=== PATIENT | female | born 1965 ===

== ENCOUNTER → 2021-11-03 13:50 | Outpatient (BNVA) | payer OTHER, SELFPAY | PROVIDERS: PCP Internal Medicine; Visit Provider Nurse Practitioner Family | DX: R42 Dizziness and giddiness (principal); R51.9 Headache, unspecified; R25.1 Tremor, unspecified; M54.2 Cervicalgia | CPT/HCPCS: 99212 ==

== ENCOUNTER → 2022-04-12 08:40 | Outpatient (BNVA) | payer OTHER, SELFPAY | PROVIDERS: PCP Internal Medicine; Visit Provider Nurse Practitioner Family | DX: M54.2 Cervicalgia (principal); R42 Dizziness and giddiness; R51.9 Headache, unspecified; R25.1 Tremor, unspecified; Z79.899 Other long term (current) drug therapy | CPT/HCPCS: 99212 ==

== ENCOUNTER → 2022-05-03 10:04 | Outpatient (BNVA) | payer OTHER, SELFPAY | PROVIDERS: PCP Internal Medicine; Visit Provider Nurse Practitioner Family | DX: M54.2 Cervicalgia (principal); R25.1 Tremor, unspecified; R51.9 Headache, unspecified; R20.2 Paresthesia of skin | CPT/HCPCS: 99212 ==

== ENCOUNTER 2022-06-19 09:39 | Outpatient (REF) | payer OTHER, SELFPAY ==
--- NOTE | ~2022-06-19 | MR_ITS ---
EXAMINATION: MR CERVICAL SPINE WITHOUT CONTRAST CLINICAL INFORMATION: Cervicalgia. COMPARISON: There are no prior studies available for comparison. TECHNIQUE: MRI of the cervical spine was obtained using routine sequences without contrast. FINDINGS: VERTEBRAL BODIES AND PARASPINAL SOFT TISSUES: There is nonspecific straightening of the normal cervical lordosis. There is narrowing of intervertebral disc height at C5-C6 with mild degenerative endplate contour changes with mild edematous signal. Vertebral body heights are maintained, and no fractures are demonstrated. Overall, marrow signal is homogenous. The paravertebral structures are unremarkable. CERVICOMEDULLARY JUNCTION AND VISUALIZED POSTERIOR FOSSA: The craniocervical and posterior fossa structures are normal. Accounting for artifact, spinal cord signal appears normal. SPINAL LEVELS: C2-C3: There are left-sided soft disc protrusions, more prominent laterally with some distortion of the ventral thecal sac and there may be impingement on the ventral spinal cord on the left. There is minimal effacement of CSF around the cord and there is no significant central stenosis. The neural foramina are patent bilaterally. C3-C4: There is a small right-sided soft disc protrusion with minimal distortion of the ventral thecal sac but there is no central stenosis or spinal cord compression. There is mild right foraminal narrowing. C4-C5: There is a broad-based posterior disc protrusion which is most prominent centrally and toward the right with some distortion of the thecal sac and spinal cord, and there is mild central stenosis. There are uncovertebral osteophytes and there is moderate right foraminal narrowing. C5-C6: There is a broad-based posterior soft disc protrusion which effaces CSF ventral to the cord with flattening of the cord and there is moderate central stenosis. There are uncovertebral osteophytes, and there is severe bilateral foraminal narrowing. C6-C7: There is a broad-based posterior disc protrusion with mild effacement of CSF ventral to the spinal cord. There is no cord compression or central stenosis. There are uncovertebral osteophytes and there is moderate to severe right foraminal narrowing. C7-T1: There is no spinal cord compression or central stenosis. The neural foramina are patent bilaterally. MR/MR cervical spine wo con IMPRESSION: 1. At C5-C6 there is a broad-based posterior soft disc protrusion with flattening of the cord and moderate central stenosis. There is severe bilateral foraminal narrowing. 2. At C6-C7 there is a broad-based posterior disc protrusion without cord compression or central stenosis. There is moderate to severe right foraminal narrowing. 3. At C4-C5 there is a broad-based posterior disc protrusion which is most prominent centrally and toward the right. There is mild central stenosis and there is moderate right foraminal narrowing. 4. There are left-sided disc protrusions at C2-C3 without cord compression or central stenosis. The neural foramina are patent.
== END 2022-06-19 09:40 | disposition home or self-care (01) ==
LOC: HO.MRI 09:39
PROVIDERS: Visit Provider Nurse Practitioner Family
DX: M54.2 Cervicalgia (principal); R20.2 Paresthesia of skin; R25.1 Tremor, unspecified
CPT/HCPCS: 72141

== ENCOUNTER 2022-07-18 14:05 | Outpatient (REF) | payer OTHER, SELFPAY ==
--- NOTE | 2022-07-18 09:15 | EMG_ITS ---
Please see scanned EMG / Nerve Conduction Report. MTDD
== END 2022-07-18 14:06 | disposition home or self-care (01) ==
LOC: HO.NEURO 14:05
PROVIDERS: Visit Provider Nurse Practitioner Family
DX: M54.2 Cervicalgia (principal); R25.1 Tremor, unspecified
CPT/HCPCS: 95885; 95913

== ENCOUNTER → 2022-07-26 08:50 | Outpatient (BNVA) | payer OTHER, SELFPAY | PROVIDERS: PCP Internal Medicine; Visit Provider Nurse Practitioner Family | DX: M54.2 Cervicalgia (principal); R51.9 Headache, unspecified; R25.1 Tremor, unspecified; R42 Dizziness and giddiness; R20.2 Paresthesia of skin; M48.02 Spinal stenosis, cervical region | CPT/HCPCS: 99212 ==

== ENCOUNTER → 2022-11-19 09:10 | Outpatient (BNVA) | payer OTHER, SELFPAY | PROVIDERS: PCP Internal Medicine; Visit Provider Nurse Practitioner Family | DX: G47.9 Sleep disorder, unspecified (principal); R51.9 Headache, unspecified; R41.3 Other amnesia; R06.83 Snoring | CPT/HCPCS: 99212 ==

== ENCOUNTER 2023-05-30 07:36 | Outpatient (AMB) | payer OTHER, SELFPAY ==
--- NOTE | 2023-05-30 07:45 | A.OFFVIS_ITS ---
Intake Vital Signs 05/30/23 08:00 Height 5 ft Weight 143 lb BMI 27.9 BP 96/74 Blood Pressure Location Rt brachial Position Sitting Pulse 73 Pulse Source Pulse Oximeter Pulse Oximetry (%) 100 Oxygen Delivery Method Room Air Intake Visit Reasons: 6m follow up headache-Confirmed Intake Note: Patient presents for 6 month follow headache.Patient states still the same no changes, Last time she saw me she was going to order in lab sleep apnea also a referral to go to [facility] to do a test that takes 5 hours. . Allergies No Known Allergies Allergy (Verified 05/30/23 08:02) Medication List - Last Reconciled 05/30/23 by NISHI Almonte diclofenac sodium 1% grams topical magnesium oxide 400 mg PO BEDTIME 30 days pantoprazole 40 mg PO DAILY HPI HPI Comments History of Present Illness Details 57-yr-old female presents for f/u visit. Pt denies any significant interval medical changes. Pt states that her headaches are stable on Magnesium. She continues to have sleep difficulties, fragmented sleep, snoring, daytime sleepiness. She is still concerned about her memory- she wakes up not always knowing what day it is, has difficulty retaining information. [facility] Surgical History Hx of abdominoplasty S/P removal of thyroid nodule Hx of bariatric surgery Family History Mother No problems noted. Father No problems noted. Social History Household Members: None Alcohol intake: current Alcohol intake frequency: does not drink Patient Tobacco Use Status: Former Tobacco user Quit Date: 2018 Current occupational status: disabled Review of Systems Const All systems reviewed & are unremarkable except as noted in HPI and below Physical Exam Vital Signs: Last Vital Signs Pulse 73 05/30/23 08:00 BP 96/74 05/30/23 08:00 Pulse Ox 100 05/30/23 08:00 Oxygen Delivery Method Room Air 05/30/23 08:00 BMI result Body Mass Index 27.9 Const General: cooperative and no acute distress Orientation/consciousness: patient oriented x3 HEENT Head: Yes normocephalic Resp Effort & Inspection: normal respiratory effort and able to speak in complete sentences Neuro General: patient oriented x3, gait normal and CN's II-XI intact bilaterally Cognition (Neuro): normal cognition Motor exam (neuro): 5/5 motor strength present throughout Psych Appearance: grossly normal Mental Status: mental status grossly normal Speech and movement: Normal speech and movement present Affect: normal affect Attitude: cooperative Thought process: Normal thought process present Thought content: Normal thought content present Insight: Good insight present (Psych) Judgement: Good judgement present (Psych) Orientation What is the (year) (season) (date) (day) (month)?: year, season, date, day and month Where are we (state) (county) (town or city) (hospital) (floor)?: state, county, town or city, hospital/clinic and floor Registration Name of 3 unrelated objects clearly and slowly, then ask patient to repeat all 3 of them. (1st repeat determines score. Make sure they can repeat all three): object 1, object 2 and object 3 Attention & Calculation (CHOOSE ONE) Spell WORLD backwards (DLROW): 5 letters Recall Ask patient to repeat the 3 items from question #3.: object 1 and object 2 Language Show patient a wristwatch & ask what it is. Repeat for pencil.: watch and pencil Ask the patient to 'take a piece of paper with their right hand' 'fold paper in half' 'place paper on floor': fold paper in half and place paper on floor Print the sentence 'CLOSE YOUR EYES' on a piece. If patient actually closes eyes then score.: followed written direction Give patient a blank piece of paper & ask to write a sentence. Score if it contains a noun & verb.: sentence contains subject and verb Score Score: 26 Assessment & Plan Assessment & Plan (1) Sleep difficulties: Code(s): G47.9 - Sleep disorder, unspecified (2) Snoring: Code(s): R06.83 - Snoring (3) Excessive daytime sleepiness: Comment: ESS 12 Code(s): G47.19 - Other hypersomnia (4) Memory difficulties: Code(s): R41.3 - Other amnesia (5) Headache: Code(s): R51.9 - Headache, unspecified Plan For headache: Continue Magnesium 400mg qhs. ? For memory: Note on MMSE- score of 26 should be recorded as 26/29, as the repeat phrase was omitted as this phrase does not translate well into Mongolian. Baseline neuro-psych eval as ordered. ? For sleep difficulties: Pt advised to undergo HST to assess for sleep apnea. Orders: Orders RT PSG in-lab sleep study 05/30/23 G47.19 - Other hypersomnia, G47.9 - Sleep disorder, unspecified, R06.83 - Snoring Coding Level of Care Code Est Pt Level 4 (48429) Diagnoses Sleep difficulties G47.9 Snoring R06.83 Excessive daytime sleepiness G47.19 Memory difficulties R41.3 Headache R51.9
[2023-05-30 08:00] VITALS: BP 96/74; PULSE 73; O2SAT 100; BMI 27.9
== END 2023-05-30 08:42 | disposition home or self-care (01) ==
PROVIDERS: Visit Provider Nurse Practitioner Family
DX: G47.9 Sleep disorder, unspecified (principal); R06.83 Snoring; G47.19 Other hypersomnia; R41.3 Other amnesia; R51.9 Headache, unspecified
CPT/HCPCS: 99214

== ENCOUNTER → 2023-05-30 07:36 | Outpatient (BNVA) | payer OTHER, SELFPAY | PROVIDERS: Visit Provider Nurse Practitioner Family | DX: R51.9 Headache, unspecified (principal); R41.3 Other amnesia; G47.9 Sleep disorder, unspecified; G47.19 Other hypersomnia; R06.83 Snoring | CPT/HCPCS: 99212 ==

== ENCOUNTER → 2023-06-17 20:30 | Outpatient (REF) | payer OTHER, SELFPAY | LOC: HO.SL 20:30 | PROVIDERS: PCP Internal Medicine; Visit Provider Nurse Practitioner Family | DX: G47.19 Other hypersomnia (principal); G47.9 Sleep disorder, unspecified; R06.83 Snoring | CPT/HCPCS: 95810 ==

== ENCOUNTER → 2023-06-17 20:30 | Outpatient (BNV) | payer OTHER, SELFPAY | PROVIDERS: PCP Internal Medicine; Visit Provider Psychiatry & Neurology Neurology | DX: R06.83 Snoring (principal) | CPT/HCPCS: 95810 ==

== ENCOUNTER 2023-09-26 09:16 | Outpatient (AMB) | payer OTHER, SELFPAY ==
--- NOTE | 2023-09-26 09:22 | MHC.OFFVIS ---
Intake Vital Signs 09/26/23 09:27 Height 5 ft Weight 142 lb BMI 27.7 BP 124/72 Blood Pressure Location Rt brachial Position Sitting Pulse 61 Pulse Source Pulse Oximeter Pulse Oximetry (%) 99 Oxygen Delivery Method Room Air Intake Visit Reasons: 4 mnts f/u appt-LVM Intake Note: Patient presents for month follow up. I have two concerns, I had a mild headache back in July and my whole arm got very numb and then this month I went to [facility] and after going in a was very confused on why I was there. Allergies No Known Allergies Allergy (Verified 09/26/23 09:30) Medication List - Last Reconciled 09/26/23 by NISHI Almonte cyclobenzaprine 5 - 10 mg (1 - 2 x 5 mg) PO BEDTIME PRN 30 days diclofenac sodium 1% grams topical magnesium oxide 400 mg PO BEDTIME 30 days pantoprazole 40 mg PO DAILY HPI HPI Comments History of Present Illness Details 57-yr-old female presents for f/u visit. Pt did have Covid-19 infection in Jul, had more symptoms and strong fever, but is now feeling better. Her in-lab PSG was normal w/ AHI 0/hr and O2 martha 93%. She continues to have memory issues. She may forget where she put something, for instance took a card out to move it, but forgot where she put it. She had an episode where she walked into [facility] and became confused where she was and could not figure out how to leave the store. She does try to keep lists. She is on waiting list for neuro-psych eval. She continues to have some headaches. She had an episode of increased LUE pain, numbness, heaviness, and hand swelling x's 30 minutes and then the s/s resolved. She had some headache and nausea. She can have LUE tingling, numbness when she holds her phone in her hands for awhile. Her neck can be tense. She has been doing PT- was for her hips and now for her low back. F/B PS&S. PFSH Surgical History Hx of abdominoplasty S/P removal of thyroid nodule Hx of bariatric surgery Family History Mother No problems noted. Father No problems noted. Social History Household Members: None Alcohol intake: current Alcohol intake frequency: does not drink Patient Tobacco Use Status: Former Tobacco user Quit Date: 2018 Current occupational status: disabled Physical Exam Vital Signs: Last Vital Signs Pulse 61 09/26/23 09:27 BP 124/72 09/26/23 09:27 Pulse Ox 99 09/26/23 09:27 Oxygen Delivery Method Room Air 09/26/23 09:27 BMI result Body Mass Index 27.7 Const General: cooperative and no acute distress Orientation/consciousness: patient oriented x3 Resp Effort & Inspection: normal respiratory effort and able to speak in complete sentences Neuro Other: Bilateral posterior cervical tightness. Negative bilateral Tinel, Phalen, medial compression test. General: patient oriented x3 Cranial nerves: Yes CN's II-XII intact bilaterally Cognition (Neuro): normal cognition Psych Appearance: grossly normal Mental Status: mental status grossly normal Speech and movement: Normal speech and movement present Affect: normal affect Attitude: cooperative Assessment & Plan Assessment & Plan (1) Memory difficulties: Code(s): R41.3 - Other amnesia (2) Headache: Code(s): R51.9 - Headache, unspecified (3) Tremor: Code(s): R25.1 - Tremor, unspecified (4) Cervicalgia: Code(s): M54.2 - Cervicalgia Plan For headache, cervicalgia, paresthesia: Continue Magnesium 400mg qhs. Trila cyclobenzaprine5-10mg qhs prn. 2021 [facility]UE EMG/NCS- normal Future considerations: PT, repeat EMG/NCS, c-spine imaging. ? For memory: Baseline neuro-psych eval as ordered. Will request recent lab work by PCP. Pt advised to undergo EEG. ? For sleep difficulties: Reviewed HST and in-lab PSG- normal. Jun 2023- In-lab PSG- AHI 0/hr and O2 martha 93%. Medications: New cyclobenzaprine 5 - 10 mg (1 - 2 x 5 mg) PO BEDTIME PRN 60 tabs 3RF muscle spasm 30 days Coding Level of Care Code Est Pt Level 4 (84266) Diagnoses Memory difficulties R41.3 Headache R51.9 Tremor R25.1 Cervicalgia M54.2
[2023-09-26 09:27] VITALS: BP 124/72; PULSE 61; O2SAT 99; BMI 27.7
== END 2023-09-26 10:33 | disposition home or self-care (01) ==
PROVIDERS: PCP Internal Medicine; Visit Provider Nurse Practitioner Family
DX: R41.3 Other amnesia (principal); R51.9 Headache, unspecified; R25.1 Tremor, unspecified; M54.2 Cervicalgia
CPT/HCPCS: 99214

== ENCOUNTER → 2023-09-26 09:16 | Outpatient (BNVA) | payer OTHER, SELFPAY | PROVIDERS: PCP Internal Medicine; Visit Provider Nurse Practitioner Family | DX: R41.3 Other amnesia (principal); R51.9 Headache, unspecified; R25.1 Tremor, unspecified; M54.2 Cervicalgia | CPT/HCPCS: 99212 ==

== ENCOUNTER 2023-10-16 12:33 | Outpatient (REF) | payer OTHER, SELFPAY ==
--- NOTE | 2023-10-16 12:37 | EEG_ITS ---
FINDINGS: The waking background activity consists of low voltage fast frequencies seen diffusely intermixed with muscle artifacts anteriorly. Occasional posterior low voltage 11 hertz alpha frequency was seen briefly. Photic stimulation produces symmetrical photic driving responses in the posterior quadrants. Hyperventilation was omitted. No focal, lateralizing, or paroxysmal discharges are seen. IMPRESSION: This waking EEG is considered within normal limits. MD CLINTON Pastrana/ADRIAN / [phone]
== END 2023-10-16 12:34 | disposition home or self-care (01) ==
LOC: HO.NEURO 12:33
PROVIDERS: PCP Internal Medicine; Visit Provider Nurse Practitioner Family
DX: R41.3 Other amnesia (principal); R42 Dizziness and giddiness; R51.9 Headache, unspecified; R25.1 Tremor, unspecified
CPT/HCPCS: 95816

== ENCOUNTER 2024-01-29 08:45 | Outpatient (AMB) | payer OTHER, SELFPAY ==
--- NOTE | 2024-01-29 08:50 | MHC.OFFVIS ---
Vital Signs 01/29/24 09:22 Height 5 ft Weight 146 lb BMI 28.5 BP 110/78 Blood Pressure Location Rt brachial Position Sitting Pulse 62 Pulse Source Pulse Oximeter Pulse Oximetry (%) 98 Oxygen Delivery Method Room Air Intake Visit Reasons: 4 Month F/U-LVM Intake Note: Patient presents for 4 month follow up.Patient is feeling dizziness and gets nauseaous. Geoscience Specialist Required: Yes Geoscience Specialist Name: gopal weaver Allergies No Known Allergies Allergy (Verified 01/29/24 09:21) Medication List - Last Reconciled 01/29/24 by NISHI Almonte cyclobenzaprine 5 - 10 mg (1 - 2 x 5 mg) PO BEDTIME PRN 30 days diclofenac sodium 1% grams topical magnesium oxide 400 mg PO BEDTIME 30 days pantoprazole 40 mg PO DAILY HPI Comments Details: 58-yr-old female presents for f/u visit. Pt denies any significant interval medical changes. She has been feeling good overall. However she is noticing episodes of dizziness, nausea, buzzing in her head. The dizziness is like off-balance or not right in space. 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 She notices this is better when she wears her glasses- has prescription glasses- has some catracts and glaucoma. She sometimes sees water falling in he left or right lateral vision- was felt to be r/t glaucoma or dry eyes. She has good and bad days with her neck pain. She has tightness and discomfort in the Right shoulder. She has been doing PT at [facility]. She has been having soem dry needling. The cyclobenzaprine did seem to make her dizziness. [facility] Surgical History Hx of abdominoplasty S/P removal of thyroid nodule Hx of bariatric surgery Family History Mother No problems noted. Father No problems noted. Social History Household Members: None Alcohol intake: current Alcohol intake frequency: does not drink Patient Tobacco Use Status: Former Tobacco user Current occupational status: disabled Physical Exam Vital Signs: Last Vital Signs Pulse 62 01/29/24 09:22 BP 110/78 01/29/24 09:22 Pulse Ox 98 01/29/24 09:22 Oxygen Delivery Method Room Air 01/29/24 09:22 BMI result Body Mass Index 28.5 Const General: cooperative and no acute distress Orientation/consciousness: patient oriented x3 Resp Effort & Inspection: normal respiratory effort and able to speak in complete sentences Neuro Other: Bilateral posterior cervical tightness. EOM intact, but elicits uneasy feeling. General: patient oriented x3 Cranial nerves: Yes CN's II-XII intact bilaterally Cognition (Neuro): normal cognition Coordination: [id number] test normal and tandem gait normal Romberg Test: Negative Psych Appearance: grossly normal Mental Status: mental status grossly normal Speech and movement: Normal speech and movement present Affect: normal affect Attitude: cooperative Assessment & Plan Assessment & Plan (1) Dizziness: Code(s): R42 - Dizziness and giddiness Category: Medical (2) Cervical stenosis of spinal canal: Code(s): M48.02 - Spinal stenosis, cervical region Category: Medical (3) Neural foraminal stenosis of cervical spine: Comment: multilevel, bilateral Code(s): M48.02 - Spinal stenosis, cervical region Category: Medical (4) Paresthesia of right upper extremity: Code(s): R20.2 - Paresthesia of skin Category: Medical (5) Headache: Code(s): R51.9 - Headache, unspecified Category: Medical (6) Memory difficulties: Code(s): R41.3 - Other amnesia Category: Medical Plan For headache, cervicalgia, paresthesia, dizziness: Pt does not want to try new med tx until she has completed PT. Continue Magnesium 400mg qhs. Stop cyclobenzaprine 5-10mg qhs prn- not tolerated. 2021 [facility] EMG/NCS- normal Continue PT. Try to avoid sustained cervical flexion- strategies discussed, such a table to raise book while reading. Also- use lubricating eye drops and eye glasses. Ensure adequeate hydration. Future considerations: repeat EMG/NCS, c-spine imaging. ? For memory: Baseline neuro-psych eval as ordered. Reviewed EEG- normal. HST and in-lab PSG- normal. Jun 2023- In-lab PSG- AHI 0/hr and O2 martha 93%. Medications: Discontinued cyclobenzaprine Discontinued Reason: Doctor's Order 5 - 10 mg (1 - 2 x 5 mg) PO BEDTIME 30 days PRN 60 tabs 3RF muscle spasm Coding Level of Care Code Est Pt Level 4 (93427) Diagnoses Dizziness R42 Cervical stenosis of spinal canal M48.02 Neural foraminal stenosis of cervical spine M48.02 Paresthesia of right upper extremity R20.2 Headache R51.9 Memory difficulties R41.3
[2024-01-29 09:22] VITALS: BP 110/78; PULSE 62; O2SAT 98; BMI 28.5
== END 2024-01-29 09:59 | disposition home or self-care (01) ==
PROVIDERS: PCP Internal Medicine; Visit Provider Nurse Practitioner Family
DX: R42 Dizziness and giddiness (principal); M48.02 Spinal stenosis, cervical region; R20.2 Paresthesia of skin; R51.9 Headache, unspecified; R41.3 Other amnesia
CPT/HCPCS: 99214

== ENCOUNTER → 2024-01-29 08:45 | Outpatient (BNVA) | payer OTHER, SELFPAY | PROVIDERS: PCP Internal Medicine; Visit Provider Nurse Practitioner Family | DX: M48.02 Spinal stenosis, cervical region (principal); R42 Dizziness and giddiness; R20.2 Paresthesia of skin; R51.9 Headache, unspecified; R41.3 Other amnesia | CPT/HCPCS: 99212 ==

== ENCOUNTER 2024-05-01 14:35 | Outpatient (AMB) | payer OTHER, SELFPAY ==
--- NOTE | 2024-05-01 15:06 | MHC.OFFVIS ---
Vital Signs 05/01/24 15:07 Height 5 ft Weight 145 lb 2 oz BMI 28.3 BP 110/80 Blood Pressure Location Lt brachial Position Sitting Pulse 72 Pulse Source Pulse Oximeter Pulse Oximetry (%) 98 Oxygen Delivery Method Room Air Intake Visit Reasons: 6 Month F/U Defensive Secondary Coach Required: Yes Defensive Secondary Coach Services: Defensive Secondary Coach Present (Lakia Clarkejuarez/ [facility] Defensive Secondary Coach) Defensive Secondary Coach Name: Lakia Bojorquez with [facility] Accompanied by: Other Relationship Allergies No Known Allergies Allergy (Verified 05/01/24 15:11) Medication List - Last Reconciled 05/01/24 by NISHI Almonte diclofenac sodium 1% grams topical magnesium oxide 400 mg PO BEDTIME 30 days pantoprazole 40 mg PO DAILY HPI Comments Details: 58-yr-old female presents for f/u visit. Pt is accompanied by certified court/medical interpreter, Pt recently underwent right thumb orthopedic repair w/o complication. She is still in soft splint and splint. She states she did have bothersome dizziness, right ear tinnitus, right mastoid region pressure sensation- more so in Mar. However, pt states in the last week, she has felt magnificent . Barely has any dizziness when she moves. She would like to discuss alternate tx options in case the dizziness returns, as when the dizziness is wore it makes it difficult to do her daily activities. She did have neuro-psych consult- states she was told she has normal age-related cognitive s/s. [facility] Surgical History Hx of abdominoplasty S/P removal of thyroid nodule Hx of bariatric surgery Family History Mother No problems noted. Father No problems noted. Social History Household Members: None Alcohol intake: current Alcohol intake frequency: does not drink Patient Tobacco Use Status: Former Tobacco user Current occupational status: disabled Physical Exam Vital Signs: Last Vital Signs Pulse 72 05/01/24 15:07 BP 110/80 05/01/24 15:07 Pulse Ox 98 05/01/24 15:07 Oxygen Delivery Method Room Air 05/01/24 15:07 BMI result Body Mass Index 28.3 Const General: cooperative and no acute distress Orientation/consciousness: patient oriented x3 Resp Effort & Inspection: normal respiratory effort and able to speak in complete sentences Neuro General: patient oriented x3 Cranial nerves: Yes CN's II-XII intact bilaterally Cognition (Neuro): normal cognition Extrem Other: Right arm soft cast intact Psych Appearance: grossly normal Mental Status: mental status grossly normal Speech and movement: Normal speech and movement present Affect: normal affect Attitude: cooperative Assessment & Plan Assessment & Plan (1) Dizziness: Code(s): R42 - Dizziness and giddiness Category: Medical (2) Headache: Code(s): R51.9 - Headache, unspecified Category: Medical (3) Cervicalgia: Code(s): M54.2 - Cervicalgia Category: Medical Plan For headache, cervicalgia, paresthesia, dizziness: Continue Riboflavin 400mg qam. Continue Magnesium 400mg qhs. Trial Gabapentin 100-300mg qd- may take for periods of dizziness and headache. Try to avoid sustained cervical flexion- strategies discussed, such a table to raise book while reading. Use lubricating eye drops and eye glasses. Ensure adequate hydration. Previous trials: Cyclobenzaprine 5-10mg qhs prn- not tolerated. Future considerations: repeat EMG/NCS, c-spine imaging. ? For memory: Neuro-psych eval reassuring. EEG- normal. HST and in-lab PSG- normal. Jun 2023- In-lab PSG- AHI 0/hr and O2 martha 93%. Continue regular social, cognitive stimulating activities. Medications: New gabapentin for episodes of dizziness, tinnitus, headache 100 - 300 mg (1 - 3 x 100 mg) PO BEDTIME 30 days 90 caps 3RF Coding Level of Care Code Est Pt Level 4 (84097) Diagnoses Dizziness R42 Headache R51.9 Cervicalgia M54.2
[2024-05-01 15:07] VITALS: BP 110/80; PULSE 72; O2SAT 98; BMI 28.3
== END 2024-05-01 15:36 | disposition home or self-care (01) ==
PROVIDERS: PCP Internal Medicine; Visit Provider Nurse Practitioner Family
DX: R42 Dizziness and giddiness (principal); R51.9 Headache, unspecified; M54.2 Cervicalgia
CPT/HCPCS: 99214

== ENCOUNTER → 2024-05-01 14:35 | Outpatient (BNVA) | payer OTHER, SELFPAY | PROVIDERS: PCP Internal Medicine; Visit Provider Nurse Practitioner Family | DX: R42 Dizziness and giddiness (principal); R51.9 Headache, unspecified; M54.2 Cervicalgia | CPT/HCPCS: 99212 ==

== ENCOUNTER 2024-10-28 09:06 | Outpatient (REF) | payer OTHER, SELFPAY ==
--- NOTE | ~2024-10-28 | MR_ITS ---
EXAMINATION: MR BRAIN/IAC PROTOCOL WITHOUT AND WITH CONTRAST CLINICAL INFORMATION: Vertigo. Tinnitus right ear. COMPARISON: None available. TECHNIQUE: Multiplanar, multisequence MRI of the brain IAC protocol was obtained before and after the intravenous administration of 6.5 mL (Gadavist). No reported immediate complications. FINDINGS: The cochlear and vestibular components of the 8th cranial nerve demonstrated no signal abnormality or enhancing lesion. There is a right anterior inferior cerebral artery type III. There is a left anterior inferior cerebral artery type II. No restricted diffusion. No acute intracranial hemorrhage, mass effect, midline shift, hydrocephalus or herniation. Navarro-white matter differentiation is normal. Sellar/suprasellar region is normal. Craniocervical junction is intact and normal. No acute intracranial hemorrhage, mass effect, midline shift, hydrocephalus or herniation. There are a few, less than 3 mm nonenhancing no restricted diffusion punctate subcortical and deep white matter hyperintense T2 FLAIR signal in the right frontal and right temporal parietal lobes. Flow-void signal within the main cerebral vessels is normal. No masses or signal abnormality within the intraconal or the extraconal compartments of the orbits. MR/MR head/brain wo/w con IMPRESSION: No vestibular schwannoma. Right AICA type III. Left AICA, type II. Nonspecific T2 FLAIR signal foci, right frontal temporoparietal lobes. No acute brain abnormality. Electronically signed by: Ben Ji MD 10/28/2024 04:05 PM EDT
--- OUTSIDE RECORDS SUMMARY | 2024-10-28 09:55 | XMS_ITS | Encounter Summary ---
Author Organization [facility] Address [address] [place] [address] Care Team Providers Care Coal Equipment Operator Name Role Phone Catrachito Tran MD Primary Care Provider [phone] Reason for Referral * Consultation (Routine) - Authorized Specialty Diagnoses / Procedures Referred By Contedmund t Referred To Contact Plastic Surgery Diagnoses Excess skin of thigh Dayo Green MD [address] [address] Phone: tel: fax: Jessi Rose MD [address] [place] [id number] Phone: tel: fax: Referral ID Status Reason Start Date Expiration Date Visits Requested Visits Authorized [id number] Authorized Specialty Services Required 10/15/2024 10/15/2025 1 1 Reason for Visit * Reason Comments Follow-up 1 year follow up Encounter Details Date Type Department Care Team (Latest Contact Info) Description 10/15/2024 1:30 PM EST Office Visit Bariatric Surgery - [place] [address] [phone] Dayo Green MD [address] [address] Postgastrectomy malabsorption (Primary Dx); Over weight; Excess skin of thigh Social History Tobacco Use Types Packs/Day Years Used Date Smoking Tobacco: Former Cigarettes 0.5 35.9 0 10/10/1981 - 09/14/2017 Smokeless Tobacco: Never Alcohol Use Standard Drinks/Week Comments No 0 (1 standard drink = 0.6 oz pur e alcohol) Comments No Sex and Gender Information Value Date Recorded Sex Assigned at Not on file Legal Sex Female 2:59 AM EST Gender Identity Not on file Sexual Orientation Not on file documented as of this encounter Last Filed Vital Signs Vital Sign Reading Time Taken Comments Blood Pressure 122/74 10/15/2024 1:43 PM EST Pulse 69 10/15/2024 1:43 PM EST Temperature 36.9 ??C (98.4 ??F) 10/15/2024 1:43 PM ES T Respiratory Rate - - Oxygen Saturation - - Inhaled Oxygen Concentration - - Weight 66.7 kg (147 lb) 10/15/2024 1:43 PM EST Height 152.4 cm (5') 10/15/2024 1:43 PM EST Body Mass Index 28.71 10/15/2024 1:43 PM EST documented in this encounter Progress Notes * Dayo Green MD - 10/15/2024 1:30 PM EST Ms. Najera is a 59 y.o. year old female who presents for surgical follow up regarding obesity. HPI: Ms. Najera had sleeve 02/2020. Has regained 7 lbs, anxiety eating at night. Excess skin of thighs. Having pain in the lower back , hips and knees. BMI is 28.71. Labs reviewed. ROS: GENERAL: No malaise, significant unintentional weight loss, fever, chills or night sweats. HEENT: No changes in hearing or vision, no nose bleeds or other nasal problems. NECK: No lumps, goiter, pain or significant neck swelling RESPIRATORY: No cough, wheezing or shortness of breath CARDIOVASCULAR: No chest pain, leg swelling or palpitations. GI: No abdominal discomfort, nausea, vomiting, or change in bowel habits. : No dysuria, frequency or incontinence. SKIN: No lesions, rash or itching. HEMATOLOGY: No prolonged bleeding, easy bruisability. LYMPHOLOGY No swollen nodes. MUSCULOSKELETAL: back pain, knee pain, hip pain. Excess skin thighs. NEURO: No abnormalities. All other systems reviewed which are negative. PAST MEDICAL HISTORY: Patient Active Problem List Diagnosis Date Noted Date Diagnosed Primary osteoarthritis of first carpometacarpal joint of right hand 12/30/2023 Rupture of radial collateral ligament of thumb, right, sequela 12/30/2023 Primary osteoarthritis of left knee 09/05/2023 Primary osteoarthritis of right knee 09/05/2023 COVID 07/15/2023 Diastasis recti 06/05/2022 Intertrigo 06/05/2022 Pannus, abdominal 06/05/2022 Overweight (BMI 25.0-29.9) 05/05/2020 Prediabetes 12/09/2019 Vitamin D deficiency 12/31/2018 ARMD (age related macular degeneration) 05/05/2018 Cortical cataract of both eyes 05/05/2018 Retinal drusen of both eyes 05/05/2018 Multinodular goiter 12/12/2017 Osteoarthritis 08/20/2017 Glaucoma suspect of both eyes 04/29/2017 Obstructive sleep apnea 10/29/2014 RLS (restless legs syndrome) 10/29/2014 Major depression 05/06/2014 GERD (gastroesophageal reflux disease) 05/15/2010 PAST SURGICAL HISTORY: Past Surgical History: Procedure Laterality Date BARIATRIC SURGERY 02/2020 PROCEDURE: GA LAPS GSTRC RSTRICTIV PX LONGITUDINAL GASTRECTOMY SECTION PROCEDURE: HISTORICAL COLONOSCOPY 07/04/2010 PROCEDURE: HISTORICAL COLONOSCOPY; COMMENT: Up to cecum, good preparation, 2 sigmoid polyp removed:TA/hyperplastic, rectal polyp removed:hyperplastic COLONOSCOPY 11/08/2015 PROCEDURE: HISTORICAL COLONOSCOPY; COMMENT: No polyps FINE NEEDLE ASPIRATION 12/06/2017 PROCEDURE: FINE NDLE ASPRTN W/IMAGING GUIDANCE; COMMENT: Thyroid- benign FOOT SURGERY Left 1999 PROCEDURE: HISTORICAL FOOT SURGERY; COMMENT: Bunionectomy TUBAL LIGATION PROCEDURE: HISTORICAL TUBAL LIGATION UPPER GASTROINTESTINAL ENDOSCOPY 11/08/2010 PROCEDURE: GA UPPER GI ENDOSCOPY PERFORMED; COMMENT: normal UPPER GASTROINTESTINAL ENDOSCOPY 07/05/2004 PROCEDURE: GA UPPER GI ENDOSCOPY PERFORMED; COMMENT: [facility] - HH; antral gastritis; - H. pylori WRIST SURGERY Left 02/2020 PROCEDURE: HISTORICAL WRIST SURGERY; COMMENT: ORIF, navicular fracture SOCIAL HISTORY: Social History Tobacco Use Smoking status: Former Current packs/day: 0.00 Average packs/day: 0.5 packs/day for 35.9 years (18.0 ttl pk-yrs) Types: Cigarettes Start date: 10/10/1981 Quit date: 09/14/2017 Years since quittin.0 Smokeless tobacco: Never Substance Use Topics Alcohol use: No FAMILY HISTORY: Family History Problem Relation Name Age of Onset Arthritis Mother No Known Problems Father Arthritis Sister No Known Problems Brother No Known Problems Maternal Grandmother No Known Problems Maternal Grandfather No Known Problems Paternal Grandmother No Known Problems Paternal Grandfather No Known Problems Aunt No Known Problems Uncle No Known Problems Other Blindness Neg Hx Cataracts Neg Hx Glaucoma Neg Hx Macular degeneration Neg Hx Strabismus Neg Hx Breast cancer Neg Hx Ovarian cancer Neg Hx Colon cancer Neg Hx Uterine cancer Neg Hx Pancreatic cancer Neg Hx Kidney cancer Neg Hx Family Status Relation Name Status Mother Alive Father Sister Alive Brother Alive MGM (Not Specified) MGF (Not Specified) PGM (Not Specified) PGF (Not Specified) Aunt (Not Specified) Uncle (Not Specified) Other (Not Specified) Neg Hx (Not Specified) No partnership data on file MEDICATIONS: There are no discontinued medications. ACTIVE MEDICATIONS: No outpatient medications have been marked as taking for the 10/15/24 encounter (Office Visit) with Dayo Green MD. ALLERGIES: No Known Allergies PHYSICAL EXAM: Visit Vitals BP 122/74 Pulse 69 Temp 36.9 ??C (98.4 ??F) (Temporal) Ht 1.524 m (60 ) Wt 66.7 kg (147 lb) BMI 28.71 kg/m?? OB Status Postmenopausal Smoking Status Former BSA 1.64 m?? APPEARANCE: Alert and oriented and in no acute distress EYES: Conjunctiva normal and sclera normal and anicteric. NECK: Neck supple with no adenopathy. HEART: RRR with normal S 1 and S 2, no murmurs, no gallops. LUNG: Clear to auscultation LYMPH NODES: No gross cervical or clavicular lymphadenopathy. ABDOMEN: Bowel sounds normoactive, soft, non-tender, non-distended, EXTREMITIES: Extremities warm and well perfused without clubbing, cyanosis, or edema. SKIN: Skin color and texture normal. No rashes or lesions. NEUROLOGIC: Alert and oriented ??3. No motor or sensory deficits in the extremities. LABS/IMAGING: ASSESSMENT: 1. Postgastrectomy malabsorption 2. Over weight 3. Excess skin of thigh PLAN: 1. Will check labs to R/O deficiencies and for obesity complications. 2. Refer to plastic surgeon for excess skin of the thighs causing pain. Dietitian for weight regain. 3. F/U in 4 months. documented in this encounter Plan of Treatment Upcoming Encounters Date Type Department Care Team (Late st Contact Info) Description 12/01/2024 9:30 AM EDT Nutrition Bariatric Surgery - [place] [address] [phone] Phyllis Abrams, RD [address] [phone] 12/16/2024 9:30 AM EDT Office Visit Orthopedic Surgery [facility] 160 175 [facility] [address] [place] [phone] Bushra Zambrano PA [address] [address] 12/18/2024 9:30 AM EDT [facility]ointment [facility] [address] [place] [phone] 02/03/2025 9:30 AM EDT Office Visit Orthopedic Surgery [facility] 250 175 [facility] [address] [place] [phone] Romy Hein NP [address] [address] 02/16/2025 8:15 AM EDT Office Visit Bariatric Surgery [facility] [address] [phone] Dayo Green MD [address] [address] Scheduled Orders Name Type Priority Associated Diagnoses Orde r Schedule Lipid panel with reflex to direct LDL Lab Routine Postgastrectomy malabsorption 1 Occurrences starting 10/15/2024 until 10/15/2025 Albumin Lab Routine Postgastrectomy malabsorption 1 Occurrences starting 10/15/2024 until 10/15/2025 Folate Lab Routine Postgastrectomy malabsorption 1 Occurrences starting 10/15/2024 until 10/15/2025 Iron and TIBC Lab Routine Postgastrectomy malabsorption 1 Occurrences starting 10/15/2024 until 10/15/2025 Vitamin B12 Lab Routine Postgastrectomy malabsorption 1 Occurrences starting 10/15/2024 until 10/15/2025 Vitamin D 25 hydroxy Lab Routine Postgastrectomy malabsorption 1 Occurrences starting 10/15/2024 until 10/15/2025 Zinc Lab Routine Postgastrectomy malabsorption 1 Occurrences starting 10/15/2024 until 10/15/2025 Hemoglobin A1c Lab Routine Postgastrectomy malabsorption 1 Occurrences starting 10/15/2024 until 10/15/2025 Thyroid stimulating hormone Lab Routine Postgastrectomy malabsorption 1 Occurrences starting 10/15/2024 until 10/15/2025 Scheduled Referrals Name Type Priority Associated Diagnoses Order Schedule Ambulatory referral to Plastic Surgery Outpatient Referral Routine Excess skin of thigh 1 Occurrences starting 10/15/2024 until 10/15/2025 documented as of this encounter Goals Goal Patient Goal Type Associated Problems Recent Progress Patient-Stated? Author STG General Improving(05/2025 2:36 PM EST) Yes Sylvie Damico COTA Note: 1.R wrist ext at least 55' in prep for Wb'ing 07/21 MET 2. R wrist flex at least 45' to facilitate pulling pants up07/21 MET 3. R thumb MP flex at least 65' in pain -tolerance levels 07/21 IN PROGRESS, some residual tightness 4. R thumb IP flex at least 55' in pain -tolerance level. 07/21 MET 5. Dominant R manager infrastructure at least 45% of manager infrastructure. 07/21 IN PROGRESS, currently 43% 08/21/24 MET at 54% 6. Reported tolerance for BADL w/no greater than mod challenge/discomfort(ie pulling up pants, hygiene)IN PROGRESS, still some mild difficulty w/ mod resistive tasks 08/21/24 MET for BADL LTG General Improving(05/2025 2:36 PM EST) Yes Sylvie Damico COTA Note: CONT residual STG's AND PROGRESS TO LTG's 1.Dominant R manager infrastructure at least 75% of L manager infrastructure. (07/21 Goal modified based on progress to date) 08/21/24: 54% 2.Reported tolerance for all BADL/mod resistive IADL independently manner w/out signif discomfort.: 08/21/24 progress noted but still some residual discomfort (2-10/19) w/ resistive activity documented as of this encounter Visit Diagnoses Diagnosis Postgastrectomy malabsorption- Primary Over weight Overweight Excess skin of thigh Encounter for screening mammogram for breast cancer documented in this encounter Care Teams Coal Equipment Operator Relationship Specialty Start Date End Date Catrachito Tran MD [address] [place] [address] PCP - General Internal Medicine 06/29/24 documented as of this encounter
--- OUTSIDE RECORDS SUMMARY | 2024-10-28 09:55 | XMS_ITS | Encounter Summary ---
Author Organization [facility] Address [address] [place] [address] Care Team Providers Care Auxiliary Engineer Name Role Phone Catrachito Tran MD Primary Care Provider Encounter Details Date Type Department Care Team (Late Contact Info) Description 06/01/2024 9:53 AM EDT Hospital Encounter TH HISTORIC ENCOUNTERS EASTERN CONVERSION ONLY Skylar Herring MD 175 [facility] [address] [place] [address] Social History Tobacco Use Types Packs/Day Years [...] on file documented as of this encounter Plan of Treatment Upcoming Encounters Date Type Department Care Team (Late Contact Info) Description 12/01/2024 9:30 AM EDT Nutrition Bariatric Surgery - [place] 175 [facility] [address] [place] [phone] 175 [facility] [address] [place] [address] 12/16/2024 9:30 AM EDT Office Visit Orthopedic Surgery - [place] 160 175 [facility] 160 [place] [address] Bushra Zambrano PA 175 [facility] [address] [place] [address] 12/18/2024 9:30 AM EDT Appointment [facility] 271 [place] [address] 02/03/2025 9:30 AM EDT Office Visit Orthopedic Surgery - [place] 250 175 [facility] 250 [place] [phone] Romy Hein NP 175 [facility] [address] [place] [address] 02/16/2025 8:15 AM EDT Office Visit Bariatric Surgery [facility] 175 [facility] 120 [place] [phone] Dayo Green MD 175 [facility] [address] [place] [address] documented as of this encounter Goals Goal [...] -tolerance level. 07/21 MET 5. Dominant R tape duplicator at least 45% of tape duplicator. 07/21 IN PROGRESS, currently 43% 08/21/24 MET at 54% 6. Reported tolerance for BADL w/no greater than mod challenge/discomfort(ie pulling up pants, hygiene)IN PROGRESS, still some mild difficulty w/ mod resistive tasks 08/21/24 MET for BADL LTG General Improving(05/2025 2:36 PM EST) Yes Sylvie Damico COTA Note: CONT residual STG's AND PROGRESS TO LTG's 1.Dominant R tape duplicator at least 75% of L tape duplicator. (07/21 Goal modified based on progress to date) 08/21/24: 54% 2.Reported tolerance for all BADL/mod resistive IADL independently manner w/out signif discomfort.: 08/21/24 progress noted but still some residual discomfort (2-10/19) w/ resistive activity documented as of this encounter Visit Diagnoses Not on filedocumented in this encounter Care Teams Auxiliary Engineer Relationship Specialty Start Date End Date Catrachito Tran MD PCP - General 05/08/10 06/28/24 documented as of this encounter
--- OUTSIDE RECORDS SUMMARY | 2024-10-28 09:55 | XMS_ITS | Clinical Summary ---
Author Organization 175 [facility] Address [address] [place] [address] Phone Care Team Providers Care Gastroenterologist Name Role Phone Jimmy Dixon MD Primary Care Provider [phone] Allergies No known active allergies Medications ammonium lactate (LAC-HYDRIN) 12 % lotion Apply to soles of feet daily. At night wear socks to bed 01/02/20 24 Active cholecalcifero l (VITAMIN D-3) 1,250 mcg (50,000 unit) capsule TOME 1 CAPSULA POR VIA ORAL BEN VEZ POR SEMANA 02/03/20 24 Active diclofenac (VOLTAREN) 1 % topical gel Apply 4 g topically 2 times daily. 02/06/20 24 Active footcare,misce llaneous (FOOT CARE PRODUCTS MISC) 1 Applicator by Does not apply route daily. Dispens 1 pair prefabricated insoles 01/02/20 24 Active lidocaine (LIDODERM) 5 % patch Place 1 Patch onto the skin every 24 hours for 28 days. Apply for no more than 12 hours in any 24 hour period. 02/06/20 24 Active magnesium oxide (MAG-OX) 400 mg (241.3 elemental magnesium) tablet TOME BEN TABLETA POR V A ORAL TODOS LOS D AL ACOSTARSE 11/04/19 22 Active nirmatrelvir-r itonavir (Paxlovid) 300 mg (150 mg x 2)-100 mg tablet therapy pack Take 1 Package by mouth See Admin Instructions. 07/17/20 23 Active tacrolimus (PROTOPIC) 0.1 % ointment APPLY TO FACE AND NECK DOS VECES AL D A CUANDO SEA NECESARIO FLARES 09/23/19 Active gabapentin (NEURONTIN) 100 mg capsule PLEASE SEE ATTACHED FOR DETAILED DIRECTIONS 05/01/20 Active ibuprofen (ADVIL,MOTRIN) 600 mg tablet 04/22/20 24 Active oxyCODONE (ROXICODONE) 5 mg immediate release tablet 04/22/20 24 Active acetaminophen (TYLENOL) 500 mg tablet 04/22/20 24 Active pantoprazole (PROTONIX) 40 mg EC tabletIndicati ons:Gastro-eso phageal reflux disease without esophagitis TOME BEN TABLETA TODOS LOS NARAYAN 90 tablet 2 10/15/19 Active pantoprazole (PROTONIX) 40 mg EC tablet TOME BEN TABLETA TODOS LOS NARAYAN 01/22/20 24 2024 Discontinued Active Problems Problem Noted Date Diagnosed Date Primary osteoarthritis of fi rst carpometacarpal joint of right hand 12/30/2023 Rupture of radial collateral ligament of thumb, right, sequela 12/30/2023 Primary osteoarthritis of left knee 09/05/2023 Primary osteoarthritis of right knee 09/05/2023 COVID 07/15/2023 Overview (05/12/2024): Covid + 07/15/23 Diastasis recti 06/05/2022 Intertrigo 06/05/2022 Pannus, abdominal 06/05/2022 Overweight (BMI 25.0-29.9) 05/05/2020 Prediabetes 12/09/2019 Vitamin D deficiency 12/31/2018 ARMD (age related macular degeneration) 05/05/20 18 Cortical cataract of both eyes 05/05/2018 Retinal drusen of both eyes 05/05/2018 Multinodular goiter 12/12/2017 Overview (05/12/2024): FNA 11/27 Benign U/S 08/15/2020: No change compared to 2018. Osteoarthritis 08/20/2017 Overview (05/12/2024): Lumbosacral Spine, Right Knee Last Assessment & Plan: Depo-medrol 80 mg injected 08/20/2017 Glaucoma suspect of both eyes 04/29/2017 Obstructive sleep apnea 10/29/2014 Overview (05/12/2024): [facility] Polysomnogram: Date 07/19/2017; SE 75%; SM 81%; REM 23%; RDI 19 (AHI 8), Central apneas 2; Obstructive apneas 3; Mixed apneas 0; hypopneas 41; RERAs 68; average oxygen saturation 96% (lowest 87% - without saturations <88% for 5% or more of study); PLMs 45. [facility] Home Polysomnogram: Date 09/25/2018; ESMER 21, Unclassified apneas 0; Obstructive apneas 22; Central apneas 1; Mixed apneas 0; hypopneas 153; average oxygen saturation 95% (lowest 85% without saturations <88% for 5% or more of study) - Obstructive Sleep Apnea - moderate; mostly hypopneas with some obstructive apneas; without sleep related hypoventilation by 2018 home polysomnogram. 10/2021 Home Sleep Study did not reveal sleep apnea or nocturnal hypoxia. Last Assessment & Plan: Patient does not have sleep apnea. She does not need CPAP machine. I congratulated her. She will be released from the pulmonary clinic. RLS (restless legs syndrome) 10/29/2014 Major depression 05/06/2014 GERD (gastroesophageal reflux disease) 0 Overview (05/12/2024): 2009 H pylori- triple therapy Encounters Date Type Department Care Team Description 10/15/2024 1:30 PM EST Office Visit Bariatric Surgery [facility] 175 [facility] [address] [place] [phone] Dayo Green MD Postgastrectomy malabsorption (Primary Dx); Over weight; Excess skin of thigh 09/03/2024 8:30 AM EST Procedure visit Orthopedic Surgery [facility] 250 175 [facility] [address] [place] [phone] Romy Hein NP Primary osteoarthritis of left knee (Primary Dx); Primary osteoarthritis of right knee 08/27/2024 8:30 AM EST Procedure visit Orthopedic Surgery [facility] 250 175 [facility] [address] [place] [phone] Romy Hein TERRI Primary osteoarthritis of left knee (Primary Dx); Primary osteoarthritis of right knee 08/21/2024 10:15 AM EST Treatment [facility] Occupational Therapy [address] [place] [phone] Libertad Trejo, OT Rupture of radial collateral ligament of thumb, right, sequela (Primary Dx) 08/20/2024 8:30 AM EST Procedure visit Orthopedic Surgery [facility] [address] [phone] Romy Hein, TERRI Primary osteoarthritis of left knee (Primary Dx); Primary osteoarthritis of right knee 08/14/2024 8:00 AM EST Treatment [facility] Occupational Therapy [address] [place] [phone] Juan Cruz, MCCLAIN/L Rupture of radial collateral ligament of thumb, right, sequela (Primary Dx) 08/10/2024 9:30 AM EST Treatment [facility] Occupational Therapy [address] [place] [phone] Sylvie Damico, MCCLAIN Rupture of radial collateral ligament of thumb, right, sequela (Primary Dx) 08/06/2024 9:00 AM EST Treatment [facility] Occupational Therapy [address] [place] [phone] Juan Cruz, MCCLAIN/L 07/30/2024 8:15 AM EST Treatment [facility] Occupational Therapy [address] [place] [phone] Juan Cruz, MCCLAIN/L Rupture of radial collateral ligament of thumb, right, sequela (Primary Dx) from Last 3 Months Immunizations Name Administration Dates Next Due Pfizer SARS-CoV-2 COVID-19, mRNA, LNP-S, preservative free 02/02/2021 Tdap Tetanus diptheria acell ular pertussis (Boostrix; Adacel) 7yo and older 05/14/2013 Surgical History Surgery Date Site/Laterality Comments TUBAL LIGATION PROCEDURE: HISTORICAL TUBAL LIGATION COLONOSCOPY 07/04/2010 PROCEDURE: HISTORICAL COLONOSCOPY; COMMENT: Up to cecum, good preparation, 2 sigmoid polyp removed:TA/hyperplastic, rectal polyp removed:hyperplastic COLONOSCOPY 11/08/2015 PROCEDURE: HISTORICAL COLONOSCOPY; COMMENT: No polyps SECTION PROCEDURE: HISTORICAL UPPER GASTROINTESTINAL ENDOSCOPY 11/08/2010 PROCEDURE: PA UPPER GI ENDOSCOPY PERFORMED; COMMENT: normal UPPER GASTROINTESTINAL ENDOSCOPY 07/05/2004 PROCEDURE: PA UPPER GI ENDOSCOPY PERFORMED; COMMENT: [facility] - HH; antral gastritis; - H. pylori FINE NEEDLE ASPIRATION 12/06/2017 PROCEDURE: FINE NDLE ASPRTN W/IMAGING GUIDANCE; COMMENT: Thyroid- benign BARIATRIC SURGERY 02/2020 PROCEDURE: PA LAPS GSTRC RSTRICTIV PX LONGITUDINAL GASTRECTOMY FOOT SURGERY 1999 Left PROCEDURE: HISTORICAL FOOT SURGERY; COMMENT: Bunionectomy WRIST SURGERY 02/2020 Left PROCEDURE: HISTORICAL WRIST SURGERY; COMMENT: ORIF, navicular fracture Medical History Medical History Date Comments Multinodular goiter (nontoxic) 12/12/2017 D X:Multinodular goiter (nontoxic) ARMD (age related macular degeneration) 05/05/2018 DX:ARMD (age related macular degeneration) Prediabetes 12/09/2019 DX:Prediabetes Osteoarthritis 08/20/2017 DX:Osteoarthriti s; COMMENT: Lumbosacral Spine, Right Knee GERD (gastroesophageal reflux disease) 05/15/2010 DX:GERD (gastroesophageal reflux disease); COMMENT: 2009 H pylori- triple therapy History of colonic polyps 02/28/2011 DX:His tory of colonic polyps; COMMENT: Colonoscopy June 2010 = 2 sigmoid polyps (one 4mm TA and one hyperplastic) and 1 rectal polyp (hyperplastic). Glaucoma suspect of both eyes 04/29/2017 DX :Glaucoma suspect of both eyes Cortical cataract of both eyes 05/05/2018 D X:Cortical cataract of both eyes Class 2 severe obesity due t o excess calories with serious comorbidity and body mass index (BMI) of 37.0 to 37.9 in adult ([facility]) 06/08/2019 DX:Class 2 severe obesity du e to excess calories with serious comorbidity and body mass index (BMI) of 37.0 to 37.9 in adult ([facility]) Major depression 05/06/2014 DX:Major depres ej Obstructive sleep apnea 10/29/2014 DX:Obstr uctive sleep apnea; COMMENT: [facility] Polysomnogram: Date 07/19/2017; SE 75%; SM 81%; REM 23%; RDI 19 (AHI 8), Central apneas 2; Obstructive apneas 3; Mixed apneas 0; hypopneas 41; RERAs 68; average oxygen saturation 96% (lowest 87% - without saturations <88% for 5% or more of study); PLMs 45. [facility] Home Polysomnogram: Date 09/25/2018; ESMER 21, Unclassified apneas 0; Obstructive apneas 22; Central * Retinal drusen of both eyes 05/05/2018 DX:R etinal drusen of both eyes RLS (restless legs syndrome) 10/29/2014 DX: RLS (restless legs syndrome) Vitamin D deficiency 12/31/2018 DX:Vitamin D deficiency Family History Medical History Relation Name Comments No Known Problems Aunt No Known Problems Brother No Known Problems Father No Known Problems Maternal Grandfather No Known Problems Maternal Grandmother Arthritis Mother No Known Problems Other No Known Problems Paternal Grandfather No Known Problems Paternal Grandmother Arthritis Sister No Known Problems Uncle Blindness Neg Hx Breast cancer Neg Hx Cataracts Neg Hx Colon cancer Neg Hx Glaucoma Neg Hx Kidney cancer Neg Hx Macular degeneration Neg Hx Ovarian cancer Neg Hx Pancreatic cancer Neg Hx Strabismus Neg Hx Uterine cancer Neg Hx Relation Name Status Comments Aunt Brother Alive Father Maternal Grandfather Maternal Grandmother Mother Alive Other Paternal Grandfather Paternal Grandmother Sister Alive Uncle Social History Tobacco Use Types Packs/Day Years Used Date Smoking Tobacco: Former Cigarettes 0.5 35.9 0 10/10/1981 - 09/14/2017 Smokeless Tobacco: Never Tobacco Cessation:Counseling Given: Not Answered Alcohol Use Standard Drinks/Week Comments No 0 (1 standard drink = 0.6 oz pur e alcohol) Comments No Sex and Gender Information Value Date Recorded Sex Assigned at Not on file Legal Sex Female 2:59 AM EST Gender Identity Not on file Sexual Orientation Not on file Obstetrics History Para Term AB IAB SAB Ectopic Multiple Livin g Live Births 2 2 0 0 0 0 0 Date Outcome GA Total Labor Labor/2nd/3rd Weight Sex Type Anes PTL Francia A1 A5 Name Clin Para CS-Unsp ec Para CS-Unsp ec Last Filed Vital Signs Vital Sign Reading Time Taken Comments Blood Pressure 122/74 10/15/2024 1:43 PM EST Pulse 69 10/15/2024 1:43 PM EST Temperature 36.9 ??C (98.4 ??F) 10/15/2024 1:43 PM ES T Respiratory Rate 16 07/10/2024 9:43 AM EST Oxygen Saturation - - Inhaled Oxygen Concentration - - Weight 66.7 kg (147 lb) 10/15/2024 1:43 PM EST Height 152.4 cm (5') 10/15/2024 1:43 PM EST Body Mass Index 28.71 10/15/2024 1:43 PM EST Plan of Treatment Upcoming Encounters Date Type Department Care Team (Late st Contact Info) Description 12/01/2024 9:30 AM EDT Nutrition Bariatric Surgery - [place] [address] [phone] Phyllis Abrams, ROSALINDA [address] [phone] 12/16/2024 9:30 AM EDT Office Visit Orthopedic Surgery [facility] 160 175 [facility] [address] [place] [phone] Bushra Zambrano PA [address] [phone] 12/18/2024 9:30 AM EDT Appointment [facility] [address] [place] [phone] 02/03/2025 9:30 AM EDT Office Visit Orthopedic Surgery [facility] 250 175 [facility] [address] [place] [phone] Romy Hein NP [address] [phone] 02/16/2025 8:15 AM EDT Office Visit Bariatric Surgery [facility] [address] [phone] Dayo Green MD [address] [phone] Health Maintenance Due Date Last Done Comments Pneumococcal Vaccine: 50+ Years (1 of 1 - PCV) 10/10/2013 Zoster Vaccines (1 of 2) 10/10/2013 Depression Screening 07/21/2022 Medicare Annual Wellness Visit 07/21/2022 Social Influencers of Health Screening 07/21/2022 DTaP,Tdap,and Td Vaccines (2 - Td or Tdap) 05/14/2023 05/14/2013 COVID-19 Vaccine ( - season) 2024 08/22/2021, 02/23/2021, 02/02/2021 Influenza Vaccine (#1) 2024 Cholesterol Screening (Lipid Panel) 04/12/2025 04/12/2020 Colorectal Cancer Screening: Colonoscopy 11/07/2025 11/08/2015 Breast Cancer Screening 12/15/2025 12/16/19, 11/28/2022, 11/20/2021, Additional history exists Cervical Cancer Screening: HPV 02/28/2027 02/28/2022 RSV Immunization Patients 60+ Years Old (1 - 1-dose 75+ series) 10/10/2038 HIV Screening Completed 06/22/2015 Hepatitis C Screening Completed 06/22/2015 HIB Vaccines Aged Out No longer eligi ble based on patient's age to complete this topic HPV Vaccines Aged Out No longer eligi ble based on patient's age to complete this topic Hepatitis A Vaccines Aged Out No long er eligible based on patient's age to complete this topic Hepatitis B Vaccines Aged Out No long er eligible based on patient's age to complete this topic IPV Vaccines Aged Out No longer eligi ble based on patient's age to complete this topic MMR Vaccines Aged Out No longer eligi ble based on patient's age to complete this topic Meningococcal ACWY Vaccine Aged Out N o longer eligible based on patient's age to complete this topic Meningococcal B Vacine Aged Out No lo nger eligible based on patient's age to complete this topic Pneumococcal Vaccine: Pediatrics (0 to 5 Years) and At-Risk Patients (6 to 64 Years) Aged Out No longer eligible based on patient's age to complete this topic RSV Immunization Patients Under 20 months Aged Out No longer eligible based on patient's age to complete this topic Varicella Vaccines Aged Out No longer eligible based on patient's age to complete this topic Goals Goal Patient Goal Type Associated Problems [...] -tolerance level. 07/21 MET 5. Dominant R coil shaper at least 45% of coil shaper. 07/21 IN PROGRESS, currently 43% 08/21/24 MET at 54% 6. Reported tolerance for BADL w/no greater than mod challenge/discomfort(ie pulling up pants, hygiene)IN PROGRESS, still some mild difficulty w/ mod resistive tasks 08/21/24 MET for BADL LTG General Improving(05/2025 2:36 PM EST) Yes Sylvie Damico COTA Note: CONT residual STG's AND PROGRESS TO LTG's 1.Dominant R coil shaper at least 75% of L coil shaper. (07/21 Goal modified based on progress to date) 08/21/24: 54% 2.Reported tolerance for all BADL/mod resistive IADL independently manner w/out signif discomfort.: 08/21/24 progress noted but still some residual discomfort (2-10/19) w/ resistive activity Procedures Procedure Name Priority Date/Time Associated Diagnosis Comments PA ARTHROCENTESIS/ASPI RATION/INJECTION MAJOR JOINT/BURSA W/O U/S GUIDANCE Routine 09/03/2024 8:30 AM EST Primary osteoarthritis of left knee Primary osteoarthritis of right knee PA ARTHROCENTESIS/ASPI RATION/INJECTION MAJOR JOINT/BURSA W/O U/S GUIDANCE Routine 08/27/2024 8:30 AM EST Primary osteoarthritis of left knee Primary osteoarthritis of right knee PA ARTHROCENTESIS/ASPI RATION/INJECTION MAJOR JOINT/BURSA W/O U/S GUIDANCE Routine 08/20/2024 8:30 AM EST Primary osteoarthritis of left knee Primary osteoarthritis of right knee [facility] SCREENING DIGITAL Routine 12/16/2023 11:09 AM EDT Encounter for screening mammogram for malignant neoplasm of breast HPV Routine 02/28/2022 LIPID PANEL Routine 04/12/2020 COLONOSCOPY Routine 11/08/2015 HEPATITIS C SCREENING Routine 06/22/2015 HIV SCREENING Routine 06/22/2015 from Last 3 Months or Most Recently Relevant to Health Maintenance Results * PA ARTHROCENTESIS/ASPIRATION/INJECTION MAJOR JOINT/BURSA W/O U/S GUIDANCE (09/03/2024 8:30 AM EST) Narrative Korey Somers MD - 09/03/2024 8:30 AM EST Romy Hein NP ? 09/03/2024 ??8:47 AM L Inj/Asp: bilateral knee Indications: pain Details: 22 G needle, anterolateral approach Medications (Right): 20 mg sodium hyaluronate (viscosup) 10 mg/mL(mw 2.4 -3.6 million) Medications (Left): 20 mg sodium hyaluronate (viscosup) 10 mg/mL(mw 2.4 -3.6 million) Informed Consent: ??Laterality: ??Bilateral ??Relevant images/test results available and reviewed: yes ?Health status cleared: ??Yes ??Procedure/treatment, purpose, treatment alternatives, risks/potential complications and benefits explained: yes ?Patient questions answered: yes ?Patient agrees, verbalizes understanding, and wants to proceed: yes ?Consent given by: ??Patient ??Informed consent discussion completed by Physician/KALPANA with patient: ?? Verbal ??Pre-procedure timeout performed: yes ?? us Romy Hein NP IN CLINIC/BEDSIDE ORDER ARIANNE Final Result * PA ARTHROCENTESIS/ASPIRATION/INJECTION MAJOR JOINT/BURSA W/O U/S GUIDANCE (08/27/2024 8:30 AM EST) Narrative Korey Somers MD - 08/27/2024 8:30 AM EST Romy Hein NP ? 08/27/2024 ??8:41 AM L Inj/Asp: bilateral knee Indications: pain Details: 22 G needle, anterolateral approach Medications (Right): 20 mg sodium hyaluronate (viscosup) 10 mg/mL(mw 2.4 -3.6 million) Medications (Left): 20 mg sodium hyaluronate (viscosup) 10 mg/mL(mw 2.4 -3.6 million) Outcome: tolerated well, no immediate complications Informed Consent: ??Laterality: ??Bilateral ??Relevant images/test results available and reviewed: yes ?Health status cleared: ??Yes ??Procedure/treatment, purpose, treatment alternatives, risks/potential complications and benefits explained: yes ?Patient questions answered: yes ?Patient agrees, verbalizes understanding, and wants to proceed: yes ?Consent given by: ??Patient ??Informed consent discussion completed by Physician/KALPANA with patient: ?? Verbal ??Pre-procedure timeout performed: yes ?? Romy Hein NP IN CLINIC/BEDSIDE ORDER ARIANNE Final Result * PA ARTHROCENTESIS/ASPIRATION/INJECTION MAJOR JOINT/BURSA W/O U/S GUIDANCE (08/20/2024 8:30 AM EST) Narrative Korey Somers MD - 08/20/2024 8:30 AM EST Romy Hein NP ? 08/20/2024 ??9:11 AM L Inj/Asp: bilateral knee Details: 22 G needle, anterolateral approach Medications (Right): 20 mg sodium hyaluronate (viscosup) 10 mg/mL(mw 2.4 -3.6 million) Medications (Left): 20 mg sodium hyaluronate (viscosup) 10 mg/mL(mw 2.4 -3.6 million) Outcome: tolerated well, no immediate complications Informed Consent: ??Laterality: ??Bilateral ??Relevant images/test results available and reviewed: yes ?Health status cleared: ??Yes ??Procedure/treatment, purpose, treatment alternatives, risks/potential complications and benefits explained: yes ?Patient questions answered: yes ?Patient agrees, verbalizes understanding, and wants to proceed: yes ?Consent given by: ??Patient ??Informed consent discussion completed by Physician/KALPANA with patient: ?? Verbal ??Pre-procedure timeout performed: yes ?? us Romy Hein NP IN CLINIC/BEDSIDE ORDER ARIANNE Final Result * BEV SCREENING DIGITAL (12/16/2023 11:09 AM EDT) Anatomical Region Laterality Modality Mammography 12/16/2023 8:06 AM EDT Narrative 12/16/2023 11:09 AM EDT [facility] Diagnostic Imaging Department [address] [place], [place] [id number] Patient: ??TARSHA NAJERA ?/Age/Sex: 1965 - 58 - F Unit#: ??[id number] ? Location/Status: ??SPDIMAM/REG CLI ? Mnemonic/Ordering Site: ??DIGSC/SPMAM Ordering Physician: ??JIMMY DIXON MD Bev Screening Digital - 12/16/23828 Report Status:Signed EXAM: Bev Screening Digital EXAM DATE AND TIME: 12/16/2023 8:30 AM HISTORY: ??Screening. COMPARISON: ??11/28/22, 11/20/21, 11/17/20 TECHNIQUE: Bilateral digital breast tomosynthesis was performed in the CC and MLO projections. Computer aided detection with [employer] 3D 3.1 was employed. TISSUE DENSITY: a. The breasts are almost entirely fatty. FINDINGS: No suspicious masses, grouped microcalcifications, or areas of architectural distortion are seen. There are rare benign calcifications. The skin and vascularity are unremarkable. IMPRESSION: Stable mammographic appearance of the breasts. ??No evidence of malignancy is seen. A negative mammogram in the presence of a clinically suspicious palpable abnormality does not preclude the possibility of malignancy or alter the indications for biopsy. BI-RADS: ??Category 2: Benign RECOMMENDATION(S): 1: Routine screening mammogram BILATERAL in 1 year. Dictating Physician: ??RAISA BYERS MD Electronically Signed by: ??RAISA BYERS MD Dic Date/Time: ??12/16/23 1108 Sign date/Time: ??12/16/23 110 Procedure Note Raisa Byers MD - 03/30/2024 [facility] Diagnostic Imaging Department [address] [place] [address] Patient: TARSHA NAJERAO.B./Age/Sex: 1965 - 58 - F Unit#: [id number] Location/Status: [facility]/REG CLI Mnemonic/Ordering Site: [facility] Ordering Physician: JIMMY DIXON MD [facility] Screening Digital - 05/06/24 - 0829 Report Status:Signed EXAM: [facility] Screening Digital EXAM DATE AND TIME: 12/16/2023 8:30 AM HISTORY: Screening. COMPARISON: 11/28/22, 11/20/21, 11/17/20 TECHNIQUE: Bilateral digital breast tomosynthesis was performed in the CCand MLO projections. Computer aided detection with [employer] AI 3D 3.1was employed. TISSUE DENSITY: a. The breasts are almost entirely fatty. FINDINGS: No suspicious masses, grouped microcalcifications, or areas ofarchitectural distortion are seen. There are rare benign calcifications. The skin and vascularity are unremarkable. IMPRESSION: Stable mammographic appearance of the breasts. No evidence of malignancyis seen. A negative mammogram in the presence of a clinically suspicious palpable abnormality does not preclude the possibility of malignancy or alter the indications for biopsy. BI-RADS: Category 2: Benign RECOMMENDATION(S): 1: Routine screening mammogram BILATERAL in 1 year. Dictating Physician: RAISA BYERS MD Electronically Signed by: RAISA BYERS MD Dic Date/Time: 12/16/23 1108 Sign date/Time: 12/16/23 1109 Jimmy Dixon MD IMG BI PROCEDURES Final Result * Cervical Cancer Screening: HPV (02/28/2022) Pathologist [facility] Cervical Cancer Screening: HPV negative, abstracted [facility] Jagdish [facility] [employer] Final Result * (ABNORMAL) Lipid panel (04/12/2020) [facility] LDL/HDL Ratio 4 0 - 4 Triglycerides 167(A) 0 - 150 mg/dL Cholesterol 185 0 - 200 mg/dL HDL 43 >=40 mg/dL LDL Cholesterol 109(A) 0 - 100 mg/dL Blood Venous blood specimen / Unknown Historical Provider LAB BLOOD ORDERABLES Riri l Result * Colonoscopy (11/08/2015) Pathologist [facility] Colonoscopy no interpretation , abstracted Anatomical Region Laterality Modality Other [facility] Jagdish [facility] [employer] Final Result * HIV Screening (06/22/2015) HIV Screening abstracted Historical Provider HEALTH MAINTENANCE Final Result * Hepatitis C Screening (06/22/2015) Hepatitis C Screening abstracted us Historical Provider HEALTH MAINTENANCE Final Result from Last 3 Months or Most Recently Relevant to Health Maintenance [place] [address] [place] [phone] [facility] MEDICARE Member Subscriber Plan / Payer (Ef fective 2018-Present) Name:Tarsha Najera Relation to Subscriber:Self Name:Tarsha Najera Payer ID:[id number] Group ID:[id number] Type:Not on file Address: [place] [address] [address] [phone] Care Teams Gastroenterologist Relationship Specialty Start Date End Date Jimmy Dixon MD [address] [place] [id number] PCP - General Internal Medicine 06/29/24
[2024-10-28] MEDS: gadobutroL 7.5 ML VIAL IVPUSH (10:53)
== END 2024-10-28 09:07 | disposition home or self-care (01) ==
LOC: HO.MRI 09:06
PROVIDERS: PCP Internal Medicine; Visit Provider Otolaryngology
DX: H81.4 Vertigo of central origin (principal); H93.11 Tinnitus, right ear
CPT/HCPCS: 70553; A9585

== ENCOUNTER → 2024-10-28 10:15 | Outpatient (BNV) | payer OTHER, SELFPAY | PROVIDERS: PCP Internal Medicine; Visit Provider Radiology Diagnostic Radiology | DX: H93.11 Tinnitus, right ear (principal); R42 Dizziness and giddiness | CPT/HCPCS: 70553 ==

== ENCOUNTER 2024-11-13 08:29 | Outpatient (AMB) | payer OTHER, SELFPAY ==
[2024-11-13 08:42] VITALS: BP 110/72; PULSE 70; O2SAT 9; BMI 28.3
--- NOTE | 2024-11-13 08:42 | A.OFFVIS_ITS ---
Vital Signs 11/13/24 08:42 Height 5 ft Weight 145 lb BMI 28.3 BP 110/72 Blood Pressure Location Rt brachial Position Sitting Pulse 70 Pulse Source Pulse Oximeter Pulse Oximetry (%) 9 L Oxygen Delivery Method Room Air Intake Visit Reasons: Follow up Intake Note: Patient presents follow up headache medication Energy And Conservation Technician Required: Yes Energy And Conservation Technician Services: Energy And Conservation Technician Present Energy And Conservation Technician Name: brit olivier Information Interpreted: non-clinical & clinical Allergies No Known Allergies Allergy (Verified 11/13/24 08:45) Medication List - Last Reconciled 11/13/24 by NISHI Almonte diclofenac sodium 1% grams topical gabapentin 100 - 300 mg (1 - 3 x 100 mg) PO BEDTIME 30 days magnesium oxide 400 mg PO BEDTIME 30 days pantoprazole 40 mg PO DAILY HPI Comments Details: 58-yr-old female presents for f/u visit of headaches, vertigo. Patient reports that her dizziness is better since starting vestibular therapy. She has had ENT consult, and was advised to undergo brain MRI with and without contrast. Which showed some very mild focal right fronta temporoparietal lobe white matter changes, and right AICA type 3 and left AICA type 2. * She states she needs to make a follow-up appointment to discuss the full MRI results with the ENT. She did start an OTC labeled-flavum noise +supplement, which he states has helped her tinnitus to resolve. She did not trial the gabapentin, as she was hesitant to add this to her current magnesium. She states magnesium is still helpful. She did have neuro-psych consult- states she was told she has normal age-related cognitive s/s. 10/28/2024, MR/MR head/brain wo/w con IMPRESSION: No vestibular schwannoma. Right AICA type III. Left AICA, type II. Nonspecific T2 FLAIR signal foci, right frontal temporoparietal lobes. No acute brain abnormality. [facility] Surgical History Hx of abdominoplasty S/P removal of thyroid nodule Hx of bariatric surgery Family History Mother No problems noted. Father No problems noted. Social History Household Members: None Alcohol intake: current Alcohol intake frequency: does not drink Patient Tobacco Use Status: Former Tobacco user Current occupational status: disabled Physical Exam Vital Signs: Last Vital Signs Pulse 70 11/13/24 08:42 BP 110/72 11/13/24 08:42 Pulse Ox 9 L 11/13/24 08:42 Oxygen Delivery Method Room Air 11/13/24 08:42 BMI result Body Mass Index 28.3 Const General: cooperative and no acute distress Orientation/consciousness: patient oriented x3 Resp Effort & Inspection: normal respiratory effort and able to speak in complete sentences Neuro General: patient oriented x3 Cranial nerves: Yes CN's II-XII intact bilaterally Cognition (Neuro): normal cognition Psych Appearance: grossly normal Mental Status: mental status grossly normal Speech and movement: Normal speech and movement present Affect: normal affect Attitude: cooperative Assessment & Plan Assessment & Plan (1) Dizziness: Code(s): R42 - Dizziness and giddiness Category: Medical (2) Headache: Code(s): R51.9 - Headache, unspecified Category: Medical (3) Cervicalgia: Code(s): M54.2 - Cervicalgia Category: Medical Plan For headache, cervicalgia, paresthesia, dizziness: Patient has not been taking Riboflavin 400mg qam. Continue Magnesium 400mg qhs. Discontinue Gabapentin 100-300mg qd- patient was very to try Reviewed brain MRI report and images with patient, in regards to small focal right frontal temporoparietal lobe white matter abnormalities, patient advised to continue to optimize cardiovascular and metabolic risk factors. Her BP is normotensive. She states she eats a healthy diet with lots of fruits and vegetables. She tries to be physically active. Tinnitus has improved Follow-up with ENT as scheduled- likely the bilateral [id number]-left AICA findings are incidental. Continue vestibular therapy exercises. Continue to avoid sustained cervical flexion- strategies discussed, such a table to raise book while reading. Use lubricating eye drops and eye glasses. Ensure adequate hydration. Previous trials: Cyclobenzaprine 5-10mg qhs prn- not tolerated. Future considerations: repeat EMG/NCS, c-spine imaging. ? For memory: Neuro-psych eval reassuring. EEG- normal. HST and in-lab PSG- normal. Jun 2023- In-lab PSG- AHI 0/hr and O2 martha 93%. Continue regular social, cognitive stimulating activities. Medications: New vitamins-lipotropics 200-100 mg (Lipo-Flavonoid Plus) 1 - 2 tabs PO TID PRN Changed From magnesium oxide 400 mg PO BEDTIME 30 days 30 tabs 6RF To magnesium oxide 400 mg PO BEDTIME 90 tabs 3RF 90 days Discontinued gabapentin for episodes of dizziness, tinnitus, headache Discontinued Reason: Doctor's Order 100 - 300 mg (1 - 3 x 100 mg) PO BEDTIME 30 days 90 caps 3RF Coding Level of Care Code Est Pt Level 4 (29636) Diagnoses Dizziness R42 Headache R51.9 Cervicalgia M54.2
--- OUTSIDE RECORDS SUMMARY | 2024-11-13 08:56 | XMS_ITS | Encounter Summary ---
Author Organization [facility] Address [address] [place] [address] Care Team Providers Care Culture Media Laboratory Assistant Name Role Phone Catrachito Tran MD Primary Care Provider [phone] Encounter Details Date Type Department Care Team (Late Contact Info) Description 06/01/2024 9:53 AM EDT Hospital Encounter TH HISTORIC ENCOUNTERS [facility] CONVERSION ONLY Skylar Herring MD 175 [facility] [address] [place] [address] Social History Tobacco Use Types [...] 9:30 AM EDT Nutrition Bariatric Surgery - [place] 175 [facility] [address] [place] [address] Phyllis Abrams, ROSALINDA 175 [facility] [address] [place] [address] 12/16/2024 9:30 AM EDT Office Visit Orthopedic Surgery [facility] [address] [facility] [address] [place] [address] Bushra Zambrano PA 175 [facility] [address] [place] [address] 12/18/2024 9:30 AM EDT Appointment [facility] [address] [place] [phone] 02/03/2025 9:30 AM EDT Office Visit Orthopedic Surgery - [place] [address] [facility] [address] [place] [phone] Romy Hein NP 175 [facility] [address] [place] [address] 02/16/2025 8:15 AM EDT Office Visit Bariatric Surgery [facility] 175 [facility] [address] [place] [phone] Dayo Green MD 175 [facility] [address] [place], [place] [phone] 03/12/2025 9:00 AM EDT Office Visit Orthopedic Surgery [facility] 175 [facility] [address] [place] [phone] Libertad Sylvester PA 174 [facility] [address] [place] [phone] documented as of this encounter Goals Goal [...] -tolerance level. 07/21 MET 5. Dominant R mold mover at least 45% of mold mover. 07/21 IN PROGRESS, currently 43% 08/21/24 MET at 54% 6. Reported tolerance for BADL w/no greater than mod challenge/discomfort(ie pulling up pants, hygiene)IN PROGRESS, still some mild difficulty w/ mod resistive tasks 08/21/24 MET for BADL LTG General Improving(05/2025 2:36 PM EST) Yes Sylvie Damico COTA Note: CONT residual STG's AND PROGRESS TO LTG's 1.Dominant R mold mover at least 75% of L mold mover. (07/21 Goal modified based on progress to date) 08/21/24: 54% 2.Reported tolerance for all BADL/mod resistive IADL independently manner w/out signif discomfort.: 08/21/24 progress noted but still some residual discomfort (2-10/19) w/ resistive activity documented as of this encounter Visit Diagnoses Not on filedocumented in this encounter Care Teams Culture Media Laboratory Assistant Relationship Specialty Start Date End Date Catrachito Tran MD PCP - General 05/08/10 06/28/24 documented as of this encounter
--- OUTSIDE RECORDS SUMMARY | 2024-11-13 08:56 | XMS_ITS | Clinical Summary ---
Author Organization 175 [facility] Address [address] [place] [address] Phone Care Team Providers Care Educational Coordinator Name Role Phone Jimmy Dixon MD Primary Care Provider [phone] Allergies No known active allergies Medications ammonium lactate (LAC-HYDRIN) 12 % lotion Apply to soles of feet daily. At night wear socks to bed 4 Active cholecalciferol (VITAMIN D-3) 1,250 mcg (50,000 unit) capsule TOME 1 CAPSULA POR VIA ORAL BEN VEZ POR SEMANA 4 Active diclofenac (VOLTAREN) 1 % topical gel Apply 4 g topically 2 times daily. 4 Active footcare,miscel laneous (FOOT CARE PRODUCTS MISC) 1 Applicator by Does not apply route daily. Dispens 1 pair prefabricated insoles 4 Active lidocaine (LIDODERM) 5 % patch Place 1 Patch onto the skin every 24 hours for 28 days. Apply for no more than 12 hours in any 24 hour period. 4 Active magnesium oxide (MAG-OX) 400 mg (241.3 elemental magnesium) tablet TOME BEN TABLETA POR V A ORAL TODOS LOS D AL ACOSTARSE 2 Active nirmatrelvir-ri tonavir (Paxlovid) 300 mg (150 mg x 2)-100 mg tablet therapy pack Take 1 Package by mouth See Admin Instructions. 3 Active tacrolimus (PROTOPIC) 0.1 % ointment APPLY TO FACE AND NECK DOS VECES AL D A CUANDO SEA NECESARIO FLARES 4 Active gabapentin (NEURONTIN) 100 mg capsule PLEASE SEE ATTACHED FOR DETAILED DIRECTIONS 4 Active ibuprofen (ADVIL,MOTRIN) 600 mg tablet 4 Active oxyCODONE (ROXICODONE) 5 mg immediate release tablet 4 Active acetaminophen (TYLENOL) 500 mg tablet 4 Active pantoprazole (PROTONIX) 40 mg EC tabletIndicatio ns:Gastro-esoph ageal reflux disease without esophagitis TOME BEN TABLETA TODOS LOS NARAYAN 90 tablet 2 5 Active Active Problems Problem Noted Date Diagnosed Date [...] Benign U/S 08/15/2020: No change compared to 2019. Osteoarthritis 08/20/2017 Overview (05/12/2024): Lumbosacral Spine, Right Knee Last Assessment & Plan: Depo-medrol 80 mg injected 08/20/2017 Glaucoma suspect of both eyes 04/29/2017 Obstructive sleep apnea 10/29/2014 Overview (05/12/2024): [facility] Polysomnogram: Date 07/19/2017; SE 75%; SM 81%; REM 23%; RDI 19 (AHI 8), Central apneas 2; Obstructive apneas 3; Mixed apneas 0; hypopneas 41; RERAs 68; average oxygen saturation 96% (lowest 87% - without saturations <88% for 5% or more of study); PLMs 45. [facility] Home Polysomnogram: Date 09/25/2018; ESMER 21, Unclassified [...] Encounters Date Type Department Care Team Description 11/06/2024 9:00 AM EDT Office Visit Orthopedic Surgery [facility] 175 [facility] [address] [place] [address] Libertad Sylvester PA Dupuytren's contracture (Primary Dx); Pain of right hand 10/15/2024 1:30 PM EST Office Visit Bariatric Surgery [facility] 175 [facility] [address] [place] [address] Dayo Green MD Postgastrectomy malabsorption (Primary Dx); Over weight; Excess skin of thigh 09/03/2024 8:30 AM EST Procedure visit Orthopedic Surgery [facility] 250 175 [facility] [address] [place] [address] Romy Hein NP Primary osteoarthritis of left knee (Primary Dx); Primary osteoarthritis of right knee 08/27/2024 8:30 AM EST Procedure visit Orthopedic Surgery [facility] 250 175 [facility] [address] [place] [address] Romy Hein NP Primary osteoarthritis of left knee (Primary Dx); Primary osteoarthritis of right knee 08/21/2024 10:15 AM EST [facility] 175 [facility] [address] [place] [phone] Libertad Trejo, OT Rupture of radial collateral ligament of thumb, right, sequela (Primary Dx) 08/20/2024 8:30 AM EST Procedure visit Orthopedic Surgery [facility] 250 175 [facility] [address] [place] [address] Romy Hein NP Primary osteoarthritis of left knee (Primary Dx); Primary osteoarthritis of right knee from Last 3 Months Immunizations Name Administration [...] PROCEDURE: HISTORICAL UPPER GASTROINTESTINAL ENDOSCOPY 11/08/2010 PROCEDURE: MN UPPER GI ENDOSCOPY PERFORMED; COMMENT: normal UPPER GASTROINTESTINAL ENDOSCOPY 07/05/2004 PROCEDURE: MN UPPER GI ENDOSCOPY PERFORMED; COMMENT: [facility] - HH; antral gastritis; - H. pylori FINE NEEDLE ASPIRATION 12/06/2017 PROCEDURE: FINE NDLE ASPRTN W/IMAGING GUIDANCE; COMMENT: Thyroid- benign BARIATRIC SURGERY 02/2020 PROCEDURE: MN LAPS GSTRC RSTRICTIV PX LONGITUDINAL GASTRECTOMY FOOT [...] (BMI) of 37.0 to 37.9 in adult ([facility]) 06/08/2019 DX:Class 2 severe obesity du e to excess calories with serious comorbidity and body mass index (BMI) of 37.0 to 37.9 in adult ([facility]) Major depression 05/06/2014 DX:Major depres ej Obstructive sleep apnea 10/29/2014 DX:Obstr uctive sleep apnea; COMMENT: [facility] Polysomnogram: Date 07/19/2017; SE 75%; SM 81%; REM 23%; RDI 19 (AHI 8), Central apneas 2; Obstructive apneas 3; Mixed apneas 0; hypopneas 41; RERAs 68; average oxygen saturation 96% (lowest 87% - without saturations <88% for 5% or more of study); PLMs 45. [facility] Home Polysomnogram: Date 09/25/2018; ESMER 21, Unclassified [...] - - Weight 66.7 kg (147 lb) 11/06/2024 8:35 AM EDT Height 152.4 cm (5') 11/06/2024 8:35 AM EDT Body Mass Index 28.71 11/06/2024 8:35 AM EDT Plan of Treatment Upcoming Encounters Date Type Department Care Team (Late st Contact Info) Description 12/01/2024 9:30 AM EDT Nutrition Bariatric Surgery - [place] 175 [facility] [address] [place] [phone] Phyllis Abrams, RD 175 [facility] [address] [place] [address] 12/16/2024 9:30 AM EDT Office Visit Orthopedic Surgery - [place] 160 175 [facility] [address] [place] [phone] Bushra Zambrano PA 175 [facility] [address] [place] [address] 12/18/2024 9:30 AM EDT Appointment [facility] [address] [place] [phone] 02/03/2025 9:30 AM EDT Office Visit Orthopedic Surgery [facility] 250 175 [facility] [address] [place] [phone] Romy Hein NP 175 [facility] [address] [place] [address] 02/16/2025 8:15 AM EDT Office Visit Bariatric Surgery [facility] 175 [facility] [address] [place] [phone] Dayo Green MD 175 [facility] [address] [place] [address] 03/12/2025 9:00 AM EDT Office Visit Orthopedic Surgery [facility] 175 [facility] [address] [place] [phone] Libertad Sylvester PA 174 [facility] [address] [place] [phone] Health Maintenance Due Date Last Done Comments Pneumococcal Vaccine: 50+ Years (1 of 1 - PCV) 10/10/2013 Zoster Vaccines (1 of 2) 10/10/2013 Depression Screening 07/21/2022 Medicare Annual Wellness Visit 07/21/2022 Social Influencers of Health Screening 07/21/2022 DTaP,Tdap,and Td Vaccines (2 - Td or Tdap) 05/14/2023 05/14/2013 COVID-19 Vaccine ( season) 2024 08/22/2021, 02/23/2021, 02/02/2021 Influenza Vaccine (#1) 2024 Colorectal Cancer Screening: Colonoscopy 11/07/2025 11/08/2015 Breast Cancer Screening 12/15/2025 12/16/19, 11/28/2022, 11/20/2021, Additional history exists Cervical Cancer Screening: HPV 02/28/2027 02/28/2022 Cholesterol Screening (Lipid Panel) 11/04/2029 11/04/2024, 04/12/2020 RSV Immunization Adult Patients (1 - 1-dose 75+ series) 10/10/2038 HIV [...] -tolerance level. 07/21 MET 5. Dominant R burlap man at least 45% of burlap man. 07/21 IN PROGRESS, currently 43% 08/21/24 MET at 54% 6. Reported tolerance for BADL w/no greater than mod challenge/discomfort(ie pulling up pants, hygiene)IN PROGRESS, still some mild difficulty w/ mod resistive tasks 08/21/24 MET for BADL LTG General Improving(05/2025 2:36 PM EST) Yes Sylvie Damico COTA Note: CONT residual STG's AND PROGRESS TO LTG's 1.Dominant R burlap man at least 75% of L burlap man. (07/21 Goal modified based on progress to date) 08/21/24: 54% 2.Reported tolerance for all BADL/mod resistive IADL independently manner w/out signif discomfort.: 08/21/24 progress noted but still some residual discomfort (-10/19) w/ resistive activity Procedures Procedure Name Priority Date/Time Associated Diagnosis Comments XR HAND 3+ VIEWS RIGHT Routine 11/06/2024 9:31 AM EDT Pain THYROID STIMULATING HORMONE Routine 11/04/2024 8:14 AM EDT Postgastrectomy malabsorption HEMOGLOBIN A1C Routine 11/04/2024 8:14 AM EDT Postgastrectomy malabsorption ZINC Routine 11/04/2024 8:14 AM EDT Postgastrectomy malabsorption VITAMIN D 25 HYDROXY Routine 11/04/2024 8:14 AM EDT Postgastrectomy malabsorption VITAMIN B12 Routine 11/04/2024 8:14 AM EDT Postgastrectomy malabsorption IRON AND TIBC Routine 11/04/2024 8:14 AM EDT Postgastrectomy malabsorption FOLATE Routine 11/04/2024 8:14 AM EDT Postgastrectomy malabsorption ALBUMIN Routine 11/04/2024 8:14 AM EDT Postgastrectomy malabsorption LIPID PANEL WITH REFLEX TO DIRECT LDL Routine 11/04/2024 8:14 AM EDT Postgastrectomy malabsorption EXTERNAL MRI REPORT 11/03/2024 EXTERNAL MRI REPORT 10/28/2024 EXTERNAL MRI REPORT 10/28/2024 MN ARTHROCENTESIS/ASPI RATION/INJECTION MAJOR JOINT/BURSA W/O U/S GUIDANCE Routine 09/03/2024 8:30 AM EST Primary osteoarthritis of left knee Primary osteoarthritis of right knee MN ARTHROCENTESIS/ASPI RATION/INJECTION MAJOR JOINT/BURSA W/O U/S GUIDANCE Routine 08/27/2024 8:30 AM EST Primary osteoarthritis of left knee Primary osteoarthritis of right knee MN ARTHROCENTESIS/ASPI RATION/INJECTION MAJOR JOINT/BURSA W/O U/S GUIDANCE Routine 08/20/2024 8:30 AM EST Primary osteoarthritis of left knee Primary osteoarthritis of right knee ALICIA SCREENING DIGITAL Routine 12/16/2023 11:09 AM EDT Encounter for screening mammogram for malignant neoplasm of breast HM HPV Routine 02/28/2022 COLONOSCOPY Routine 11/08/2015 HEPATITIS C SCREENING Routine 06/22/2015 HIV SCREENING Routine 06/22/2015 from Last 3 Months or Most Recently Relevant to Health Maintenance Results * XR Hand 3+ Views Right (11/06/2024 9:31 AM EDT) Anatomical Region Laterality Modality Upper Extremities, Hand Right Computed Radiography Narrative 11/06/2024 10:21 AM EDT Date of Visit: 05/09/2025 Reason for visit: Right hand pain Views: AP, lateral oblique right hand Comparison:right hand x-rays from 2023 Findings: Right hand evidence of trapeziectomy. ??Good alignment of the thumb metacarpal. ??[place] intact. ??Lucency at the head of the metacarpal and base of proximal phalanx noted of the right thumb due to ligament repair. ??Good alignment of the MP joint Impression: Stable right thumb trapeziectomy interpositional arthroplasty and radial collateral ligament repair right thumb at level of MP joint us Libertad NIETO IMG XR PROCEDURES Final Resul t * (ABNORMAL) Lipid panel with reflex to direct LDL (11/04/2024 8:14 AM EDT) Cholesterol 191 0 - 200 mg/dL LAB CHEMISTRY METHOD 11/04/2024 11:49 AM EDT [facility] Triglycerides 108 0 - 150 mg/dL LAB CHEMISTRY METHOD 11/04/2024 11:49 AM EDT [facility] HDL 56 >=40 mg/dL LAB CHEMISTRY METHOD 11/04/2024 11:49 AM EDT [facility] LDL Calculated 113(H) 0 - 100 mg/dL LAB CHEMISTRY METHOD 11/04/2024 11:49 AM EDT [facility] VLDL Cholesterol Vinay 21.6 mg/dL LAB CHEMISTRY METHOD 11/04/2024 11:49 AM EDT [facility] Non HDL Chol. (LDL+VLDL) 135 <145 mg/dL LAB CHEMISTRY METHOD 11/04/2024 11:49 AM EDT [facility] Chol/HDL Ratio 3.4 0.0 - 4.4 LAB CHEMISTRY METHOD 11/04/2024 11:49 AM EDT [facility] Blood Venous blood specimen / Unknown Venipuncture / Unknown 11/04/2024 8:14 AM EDT 11/04/2024 9:46 AM EDT us Dayo Green MD LAB BLOOD ORDERABLES Final R esult [facility] [address] [place] [address], [place] [phone] * Iron and TIBC (11/04/2024 8:14 AM EDT) Iron 91 40 - 150 mcg/dL LAB CHEMISTRY METHOD 11/04/2024 11:49 AM EDT [facility] TIBC 299 250 - 450 mcg/dL LAB CHEMISTRY METHOD 11/04/2024 11:49 AM EDT [facility] Iron Saturation 30 15 - 50 % LAB CHEMISTRY METHOD 11/04/2024 11:49 AM EDT [facility] Blood Venous blood specimen / Unknown Venipuncture / Unknown 11/04/2024 8:14 AM EDT 11/04/2024 9:46 AM EDT Dayo Green MD LAB BLOOD ORDERABLES Final R esult [facility] [address] [place] [address], [place] [phone] * Zinc (11/04/2024 8:14 AM EDT) Zinc 75 60 - 130 ug/dL 11/06/2024 12:27 PM EDT [facility] Comment: Elevated results may be due to sample collected in a non-certified trace element-free tube. This test was developed and the performance characteristics determined by [facility]. It has not been cleared or approved by the FDA. The laboratory is regulated under CLIA as qualified to perform high-complexity testing. This test is used for patient testing purposes. It should not be regarded as investigational or for research. Test performed at [facility], [address] , [place], [place] ??[address] ? [phone] Alejandra Cody MD, PhD - Triage Nurse Blood Venous blood specimen / Unknown Venipuncture / Unknown 11/04/2024 8:14 AM EDT 11/04/2024 9:50 AM EDT us Dayo Green MD LAB BLOOD ORDERABLES Final R [place] [address] [place] [address] * Vitamin D 25 hydroxy (11/04/2024 8:14 AM EDT) Vit D, 25-Hydroxy 34.4 30.0 - 80.0 ng/mL LAB CHEMISTRY METHOD 11/04/2024 12:46 PM EDT [facility] Blood Venous blood specimen / Unknown Venipuncture / Unknown 11/04/2024 8:14 AM EDT 11/04/2024 9:46 AM EDT us Dayo Green MD LAB BLOOD ORDERABLES Final R esult [facility] [address] [place] [address], [place] [phone] * Thyroid stimulating hormone (11/04/2024 8:14 AM EDT) [facility] TSH 1.11 0.40 - 4.00 mcIU/mL LAB CHEMISTRY METHOD 11/04/2024 12:46 PM EDT [facility] Blood Venous blood specimen / Unknown Venipuncture / Unknown 11/04/2024 8:14 AM EDT 11/04/2024 9:46 AM EDT us Dayo Green MD LAB BLOOD ORDERABLES Final R esult [facility] [address] [place] [address], [place] [phone] * Hemoglobin A1c (11/04/2024 8:14 AM EDT) Hemoglobin A1C 5.7 <6.5 % LAB CHEMISTRY METHOD 11/04/2024 2:26 PM EDT [facility] Mean Bld Glu Estim. 117 mg/dL LAB CHEMISTRY METHOD 11/04/2024 2:26 PM EDT [facility] Blood Venous blood specimen / Unknown Venipuncture / Unknown 11/04/2024 8:14 AM EDT 11/04/2024 9:48 AM EDT us Dayo Green MD LAB BLOOD ORDERABLES Final R esult Performing Organization Address City/[facility]/ZIP Co de Phone Number [facility] [address] [place] [address], [place] [phone] * Folate (11/04/2024 8:14 AM EDT) Folate 14.9 2.8 - 17.0 ng/ml LAB CHEMISTRY METHOD 11/04/2024 11:49 AM EDT [facility] Blood Venous blood specimen / Unknown Venipuncture / Unknown 11/04/2024 8:14 AM EDT 11/04/2024 9:46 AM EDT us Dayo Green MD LAB BLOOD ORDERABLES Final R esult Performing Organization Address City/[facility]/ZIP Co de Phone Number [facility] [address] [place] [address], [place] [phone] * (ABNORMAL) Vitamin B12 (11/04/2024 8:14 AM EDT) Vitamin B-12 1,098(H) 250 - 900 pcg/mL LAB CHEMISTRY METHOD 11/04/2024 11:49 AM EDT [facility] Blood Venous blood specimen / Unknown Venipuncture / Unknown 11/04/2024 8:14 AM EDT 11/04/2024 9:46 AM EDT us Dayo Green MD LAB BLOOD ORDERABLES Final R esult Performing Organization Address City/[facility]/ZIP Co de Phone Number [facility] [address] [place] [address], * Albumin (11/04/2024 8:14 AM EDT) Albumin 3.9 3.2 - 5.0 g/dL LAB CHEMISTRY METHOD 11/04/2024 11:25 AM EDT [facility] Blood Venous blood specimen / Unknown Venipuncture / Unknown 11/04/2024 8:14 AM EDT 11/04/2024 9:46 AM EDT Dayo Green MD LAB BLOOD ORDERABLES Final R esult Performing Organization Address [facility]/ZIP Co de Phone Number [facility] [address] [place] [address], * External MRI Report (11/03/2024) Only the most recent of3 resultswithin the time period is included. Anatomical Region Laterality Modality Magnetic Resonan ce Provider [facility] IMG MRI PROCEDURES Final Result * MN ARTHROCENTESIS/ASPIRATION/INJECTION MAJOR JOINT/BURSA W/O U/S GUIDANCE (09/03/2024 [...] IN CLINIC/BEDSIDE ORDER ARIANNE Final Result * MN ARTHROCENTESIS/ASPIRATION/INJECTION MAJOR JOINT/BURSA W/O U/S GUIDANCE (08/27/2024 [...] IN CLINIC/BEDSIDE ORDER ARIANNE Final Result * MN ARTHROCENTESIS/ASPIRATION/INJECTION MAJOR JOINT/BURSA W/O U/S GUIDANCE (08/20/2024 [...] IN CLINIC/BEDSIDE ORDER ARIANNE Final Result * ALICIA SCREENING DIGITAL (12/16/2023 11:09 AM EDT) Anatomical Region Laterality Modality Mammography 12/16/2023 8:06 AM EDT Narrative 12/16/2023 11:[address] [facility] Diagnostic Imaging Department [address] [place], [place] [id number] Patient: ??TARSHA NAJERA ?/Age/Sex: 1965 - 58 - F Unit#: ??[id number] ? Location/Status: ??SPDIMAM/REG CLI ? Mnemonic/Ordering Site: ??DIGSC/SPMAM Ordering Physician: ??JIMMY DIXON MD [facility] Screening Digital - 12/16/23 - 828 Report Status:Signed EXAM: [facility] Screening Digital EXAM DATE AND TIME: 12/16/2023 8:30 AM HISTORY: ??Screening. COMPARISON: ??11/28/22, 11/20/21, 11/17/20 TECHNIQUE: Bilateral digital breast tomosynthesis was performed in the CC and MLO projections. Computer aided detection with Punch! 3D 3.1 was employed. TISSUE DENSITY: a. [...] Dic Date/Time: ??12/16/23 1108 Sign date/Time: ??12/16/23 1109 Procedure Note Raisa Byers MD - 03/30/2024 [facility] Diagnostic Imaging Department [address] [place] [id number] Patient: TARSHA NAJERA/Age/Sex: 1965 - 58 - F Unit#: [id number] Location/Status: SPDIMAM/REG CLI [facility]ician: JIMMY DIXON MD [facility] Screening Digital - 12/16/23 - 828 Report Status:Signed EXAM: [facility] Screening Digital EXAM DATE AND TIME: 12/16/2023 8:30 AM HISTORY: Screening. COMPARISON: 11/28/22, 11/20/21, 11/17/20 TECHNIQUE: Bilateral digital breast tomosynthesis was performed in the CCand MLO projections. Computer aided detection with Punch! 3D 3.1was employed. TISSUE DENSITY: a. The [...] Result * Cervical Cancer Screening: HPV (02/28/2022) Cervical Cancer Screening: HPV negative, abstracted Historical Provider HEALTH MAINTENANCE Final Result * Colonoscopy (11/08/2015) Colonoscopy no interpretation , abstracted Anatomical Region Laterality Modality Other Historical Provider HEALTH MAINTENANCE Final Result * HIV Screening (06/22/2015) HIV Screening abstracted Historical Provider HEALTH MAINTENANCE Final Result * Hepatitis C Screening (06/22/2015) Hepatitis C Screening abstracted Historical Provider HEALTH MAINTENANCE Final Result from Last 3 Months or Most Recently Relevant to Health Maintenance Insurance [facility] [employer] Member Subscriber Plan / Payer (Ef fective 2018-Present) Name:Tarsha Najera Relation to Subscriber:Self Name:Tarsha Najera Payer ID:[id number] Group ID:[id number] Type:Not on file Address: [place] [address] [place] [phone] Care Teams Educational Coordinator Relationship Specialty Start Date End Date Jimmy Dixon MD [address] [place] [phone] PCP - General Internal Medicine 06/29/24
== END 2024-11-13 09:39 | disposition home or self-care (01) ==
LOC: HO.HSMS 08:30
PROVIDERS: PCP Internal Medicine; Visit Provider Nurse Practitioner Family
DX: R42 Dizziness and giddiness (principal); R51.9 Headache, unspecified; M54.2 Cervicalgia
CPT/HCPCS: 99214

== ENCOUNTER → 2024-11-13 08:29 | Outpatient (BNVA) | payer OTHER, SELFPAY | PROVIDERS: PCP Internal Medicine; Visit Provider Nurse Practitioner Family | DX: R51.9 Headache, unspecified (principal); R42 Dizziness and giddiness; M54.2 Cervicalgia | CPT/HCPCS: 99212 ==